=== PATIENT | male | born 1950 | race Caucasian/White ===

== ENCOUNTER 2024-05-15 21:32 | Inpatient (IN) | payer OTHER ==
[~2024-05-15] VITALS: Ht 185.4 cm; Wt 75.8 kg
[2024-05-15] MEDS: IOHEXOL 300 MG/ML 100ML BOTTLE IJ ONE (21:58)
[2024-05-15] MEDS: SODIUM CHLORIDE 0.9% 1,000 ML IV ONE (22:58)
[2024-05-15 23:01] LABS: Hematocrit 30.2 % (41.0-53.0)
[2024-05-15 23:03] LABS: Mean Corpuscular Hemoglobin 30.2 pg (28.0-32.0); Mean Corpuscular Volume 91.4 fL (80.0-100.0); Platelet Count (auto) 234 10^3/uL (140-450); Red Cell Distribution Width 17.8 % (11.8-14.3)
[2024-05-15 23:07] LABS: White Blood Cell 1.8 10^3/uL (4.4-10.8)
[2024-05-15 23:09] LABS: Basophils % (manual) 0 (0.0-2.0); Blast Cells 0; Eosinophils % (manual) 0 (0-7); Metamyelocytes % 0; Myelocytes % 0; Promyelocytes % 0; Reactive Lymphocytes 0
[2024-05-15 23:10] LABS: Alanine Aminotransferase 11 U/L (7-40); Albumin 3.5 g/dL (3.2-4.8); Alkaline Phosphatase 59 U/L (46-116); Anion Gap 13 (5-15); Aspartate Aminotransferase 19 U/L (13-40); BUN/Creatinine Ratio 26.9 (10.0-20.0); Calcium 9.4 mg/dL (8.7-10.4); Chloride 104 mmol/L (98-107); Glucose 104 mg/dL (74-106); Sodium 137 mmol/L (136-145); Total Protein 5.9 g/dL (5.7-8.2)
[2024-05-15 23:12] LABS: Bilirubin, Total 1.6 mg/dL (0.2-1.0); Blood Urea Nitrogen 50 mg/dL (9-23); Carbon Dioxide 20 mmol/L (20-31); Lipase 68 U/L (12-53); Magnesium 1.4 mg/dL (1.6-2.6)
[2024-05-15 23:34] LABS: Anisocytosis Slight; Band Neutrophils % (manual) 6; Lymphocytes % (manual) 24 (10.0-50.0); Monocytes % (manual) 6 (0-12); Ovalocytes FEW; Platelet Estimate Adequate
[2024-05-15 23:54] VITALS: PULSE 105; RESP 12; O2SAT 98
--- NOTE | 2024-05-16 00:17 | ED.PDOC ---
History of Present Illness HPI Comments 73 y/o M is brought in by ambulance for complaint of hypotension and generalized weakness, today. Per EMS report, patient has a history of C diff and sepsis and is a resident of [facility] nursing [facility]. Staff from sit facility was reported to have called EMS after patient began endorsing feeling weak and was found hypotensive. On scene patient was found with a blood pressure of 88/58 and a pulse rate of 100, initially. At time of assessment, patient is a poor historian and reports having abdominal pain, nausea, vomiting, diarrhea, and lightheadedness, with associated poor appetite, for 1 week. He has no reported hematemesis, constipation, hematochezia, fever, chills, other associated symptoms at this time. Chief Complaint: General Weakness Time Seen by MD: 21:39 Reviewed Notes: Nurses Notes, Medications, Allergies Allergies: Coded Allergies: NO KNOWN ALLERGIES (Unverified , 04/30/21) Information Source: Patient, Emergency Med Personnel Mode of Arrival: Ambulatory Severity: Moderate Timing: Hours Duration: Since onset Prehospital treatment: 12 Lead EKG, Accucheck, Baggage Security Checker Review of Systems: REVIEW OF SYSTEMS: No fever, no chills, or fatigue HEENT: No sore throat, no earache, no congestion, no neck pain. Cardiac: Hypotension. No chest pain. No palpitations. Lungs: No shortness of breath, no cough. GI: No nausea, no vomiting, no diarrhea, no constipation, no abdominal pain : No dysuria, frequency, or urgency. No hematuria. Musculoskeletal: No joint pain , no joint swelling, no extremity edema. Skin: No rash, no itching. Neuro: Generalized weakness. No headache, no dizziness Vital Signs Vital Signs Date Time Temp Pulse Resp B/P (MAP) Pulse Ox O2 Delivery O2 Flow Rate FiO2 05/16/24 04:00 104 17 109/55 (73) 99 05/15/24 23:54 Nasal Cannula* 2 28 05/15/24 22:02 97.7 97.7 Physical Exam General: Patient is ill-appearing, awake, dry/raspy voice Skin: Skin in warm, dry and intact. Appropriate color for ethnicity. HEENT: The head is normocephalic and atraumatic. Conjunctivae are clear without exudates or hemorrhage. Sclera is non-icteric. EOM are intact. No signs of nystagmus. Eyelids are normal in appearance without swelling or lesions. Oral mucosa dry Neck: The neck is supple with normal range of motion. No JVD. Cardiac: Heart rate and rhythm are normal. No murmurs, gallops, or rubs are auscultated. Respiratory: No signs of respiratory distress. Lung sounds are clear in all lobes bilaterally without rales, ronchi, or wheezes. Abdominal: Abdomen is soft, non-tender and sunken. Bowel sounds are present and normoactive in all four quadrants. Extremities: Upper and lower extremities are atraumatic in appearance without deformity or edema. Integumentary: Open ulcer wound on dorsal aspect of right foot in her calf of right lower extremity. Poor skin turgor. Neurological: The patient is awake, alert and oriented to person and following commands. He has a mild tremor. Speech is clear. There is no facial asymmetry. Psychiatric: Appropriate mood and affect. Good judgement and insight. No visual or auditory hallucinations. Past Medical History Past Medical History (Other): C.diff, sepsis Surgical History: Denies all surgeries Family History Family History: Unknown Social History Smoker: Non-Smoker Alcohol: Denies ETOH Use Drugs: Denies Drug Use Lives In: Home Was a procedure done? Was a procedure done?: No EKG EKG : Pulse Rate (adult): 100 [place]: Normal Cardiac Rhythm: ST Block: None Hypertrophy: None ST: Normal Differential Dx Considerations may include: C diff, viral syndrome, spoiled food, electrolyte imbalance, encephalopathy X-Ray, Labs, Meds, VS Vital Signs Date Time Temp Pulse Resp B/P (MAP) Pulse Ox O2 Delivery O2 Flow Rate FiO2 05/16/24 04:00 104 17 109/55 (73) 99 05/16/24 02:00 103 21 104/57 (73) 100 05/16/24 01:17 100 05/16/24 00:00 105 11 101/39 (59) 100 05/16/24 00:00 103 05/15/24 23:54 105 12 98 Nasal Cannula* 2 28 05/15/24 22:02 97.7 104 13 91/58 (69) 99 97.7 05/15/24 21:35 100 05/15/24 21:32 97.7 100 18 88/58 (68) 100 Lab Test 05/15/24 22:26 Range/Units White Blood Count 1.8 *L 4.4-10.8 10^3/uL Red Blood Count 3.30 L 4.5-5.90 10^6/uL Hemoglobin 10.0 L 13.5-17.5 g/dL Hematocrit 30.2 L 41.0-53.0 % Mean Corpuscular Volume 91.4 80.0-100.0 fL Mean Corpuscular Hemoglobin 30.2 28.0-32.0 pg Mean Corpuscular Hemoglobin Concent 33.0 32.0-36.0 g/dL Red Cell Distribution Width 17.8 H 11.8-14.3 % Platelet Count 234 140-450 10^3/uL Mean Platelet Volume 7.6 6.9-10.8 fL Neutrophils (%) (Auto) 37.0-80.0 % Lymphocytes (%) (Auto) 10.0-50.0 % Monocytes (%) (Auto) 0.0-12.0 % Basophils (%) (Auto) 0.0-2.0 % Neutrophils # (Auto) 1.6-8.6 10 ^3/uL Lymphocytes # (Auto) 0.4-5.4 10 ^3/uL Monocytes # (Auto) 0-1.3 10 ^3/uL Differential Total Cells Counted 100.0 100 Neutrophils % (Manual) 64 37.0-80.0 Band Neutrophils % (Manual) 6 Lymphocytes % (Manual) 24 10.0-50.0 Monocytes % (Manual) 6 0-12 Eosinophils % (Manual) 0 0-7 Basophils % (Manual) 0 0.0-2.0 Metamyelocytes % (manual) 0 Myelocytes % (Manual) 0 Promyelocytes % (Manual) 0 Blast Cells % (Manual) 0 Reactive Lymphocytes 0 Platelet Estimate Adequate Anisocytosis (manual) Slight Ovalocytes Few Sodium Level 137 136-145 mmol/L Potassium Level 4.0 3.5-5.1 mmol/L Chloride Level 104 98-107 mmol/L Carbon Dioxide Level 20 20-31 mmol/L Anion Gap 13 5-15 Blood Urea Nitrogen 50 H 9-23 mg/dL Creatinine 1.86 H 0.700-1.30 mg/dL Glomerular Filtration Rate Calc 38 >90 mL/min BUN/Creatinine Ratio 26.9 H 10.0-20.0 Serum Glucose 104 74-106 mg/dL Lactic Acid Level 1.0 0.4-2.0 mmol/L Calcium Level 9.4 8.7-10.4 mg/dL Magnesium Level 1.4 L 1.6-2.6 mg/dL Total Bilirubin 1.6 H 0.2-1.0 mg/dL Aspartate Amino Transferase (AST) 19 13-40 U/L Alanine Aminotransferase (ALT) 11 7-40 U/L Alkaline Phosphatase 59 46-116 U/L Total Protein 5.9 5.7-8.2 g/dL Albumin 3.5 3.2-4.8 g/dL Lipase 68 H 12-53 U/L Current Medications Medications (Trade) Dose Ordered Sig/Mia Route Start Time Stop Time Status Last Admin Sodium Chloride 1,000 ml @ 1,000 mls/hr Q1H ONCE IV 05/15/24 22:15 05/15/24 23:14 DC 05/15/24 22:58 [place] [id number] Ph: [phone] DIAGNOSTIC IMAGING Diagnostic Imaging Report : [id number] Signed PATIENT: NIMA ABAD ACCT: [id number] UNIT: [id number] : 1950 LOC: ER ROOM / BED: / AGE / SEX: 73 / M ADM STATUS: REG ER SERVICE 07 ORDERING PHYSICIAN: HUANG ESCALANTE MD PROCEDURE(s): ABPLIV - CT AB PEL WITH IV CON ONLY REASON: Nausea, vomiting, abdominal pain, diarrhea ORDER NUMBER(s): [id number], ACCESSION NUMBER(s): [id number] Exam: CT CT AB PEL WITH IV CON ONLY History: Nausea, vomiting, abdominal pain, diarrhea COMPARISON: None Technique: Multidetector spiral CT of the abdomen and pelvis was performed from lung bases to pubic symphysis. Intravenous contrast was administered during this examination. Portal venous imaging was obtained. Axial, coronal and sagittal multiplanar reformats were performed by the technologist on a separate workstation. Radiation Dose : 1. Abdomen/Pelvis: CTDIvol 14.62mGy, DLP 873.39 mGy*cm. CONTRAST: Type of contrast: Contrast injected: ml Contrast ingested: ml Findings: Lung Bases: No abnormality demonstrated. Liver: Liver is normal in size. No focal lesions. Normal hepatic vascular enhancement. Gallbladder and Biliary Tree: Unremarkable. Spleen: No abnormality demonstrated. Pancreas: No abnormality demonstrated. Adrenal Glands: No abnormality demonstrated. Kidneys: No abnormality demonstrated. No evidence of renal calculus or hydroureteronephrosis. Bladder: Unremarkable Bowel: Stomach appears grossly unremarkable. No abnormally dilated or thick- walled loops of large or small bowel noted. Nonspecific air and fluid is noted in the large and small bowel. Appendix is not visualized; however, no secondary findings of acute appendicitis identified. Ascites: Absent Lymphadenopathy: No evidence of lymphadenopathy. Abdominal Wall and Mesentery: Unremarkable. Vasculature: Mild calcified plaque in abdominal aorta and iliac arteries without aneurysmal dilatation. Stents noted in bilateral iliac veins extending into SVC. Pelvic Organs: Unremarkable. Musculoskeletal: No bony lesions are fracture. IMPRESSION: No acute abdominal or pelvic finding. Radiation optimization: All CT scans at this facility use at least one of these dose optimization techniques: automated exposure control mA and/or kV a djustment per patient size (includes targeted exams where dose is matched to clinical indication) or iterative reconstruction. ATED BY: SEAN WALDRON MD DICTATED DATE/TIME: 05/16/2430 SIGNED BY: SEAN WALDRON MD SIGNED DATE/TIME: 05/16/2430 CC: Time of 1ST Reevaluation: 22:10 Reevaluation 1ST: Unchanged Patient Education/Counseling: Treatment, Need For Follow Up Family Education/Counseling: No Family Present Departure 1 Departure Time of Disposition: 00:15 Impression: Primary Impression: Dehydration Additional Impressions: Clostridium difficile infection Leukopenia Disposition: ADMITTED INPATIENT Condition: Stable Comments 73-year-old male from [facility] with nausea, vomiting, diarrhea for the past week. Chronic C diff infection, on vancomycin. Presented with hypot ension. Patient is significantly dehydrated/ARF. IV FLUIDS ADMINISTERED IN THE EMERGENCY DEPARTMENT. Infectious disease consult ordered for management of C diff and leukopenia. Patient admitted for further treatment, evaluation and monitoring. Critical Care Note Critical Care Time?: No Stability Stability form required: No Heart Score Heart Score: Heart Score Response (Comments) Value History N/A 0 EKG N/A 0 Age N/A 0 Risk Factors N/A 0 Troponin N/A 0 Total 0 I personally scribed for HUANG ESCALANTE MD ([email or web address]) on 05/16/24 at 01:17. Electronically submitted by Octavio Ryder ([email or web address]). I personally scribed for HUANG ESCALANTE MD ([email or web address]) on 05/16/24 at 04:22. Electronically submitted by Octavio Ryder ([email or web address]). HUANG ESCALANTE MD May 16, 2024 00:16
--- NOTE | 2024-05-16 00:33 | DVH ---
Exam: CT CT AB PEL WITH IV CON ONLY History: Nausea, vomiting, abdominal pain, diarrhea COMPARISON: None Technique: Multidetector spiral CT of the abdomen and pelvis was performed from lung bases to pubic s ymphysis. Intravenous contrast was administered during this examination. Portal venous imaging was obtained. Axial, coronal and sagittal multiplanar reformats were performed by the technologist on a separate workstation. Radiation Dose : 1. Abdomen/Pelvis: CTDIvol 14.62mGy, DLP 873.39 mGy*cm. CONTRAST: Type of contrast: Contrast injected: ml Contrast ingested: ml Findings: Lung Bases: No abnormality demonstrated. Liver: Liver is normal in size. No focal lesions. Normal hepatic vascular enhancement. Gallbladder and Biliary Tree: Unremarkable. Spleen: No abnormality demonstrated. Pancreas: No abnormality demonstrated. Adrenal Glands: No abnormality demonstrated. Kidneys: No abnormality demonstrated. No evidence of renal calculus or hydroureteronephrosis. Bladder: Unremarkable Bowel: Stomach appears grossly unremarkable. No abnormally dilated or thick-walled loops of large or small bowel noted. Nonspecific air and fluid is noted in the large and small bowel. Appendix is not v isualized; however, no secondary findings of acute appendicitis identified. Ascites: Absent Lymphadenopathy: No evidence of lymphadenopathy. Abdominal Wall and Mesentery: Unremarkable. Vasculature: Mild calcified plaque in abdominal aorta and iliac arteries without aneurysmal dilatatio n. Stents noted in bilateral iliac veins extending into SVC. Pelvic Organs: Unremarkable. Musculoskeletal: No bony lesions are fracture. IMPRESSION: No acute abdominal or pelvic finding. Radiation optimization: All CT scans at this facility use at least one of these dose optimization sherice hniques: automated exposure control mA and/or kV adjustment per patient size (includes targeted exam s where dose is matched to clinical indication) or iterative reconstruction.
[2024-05-16 08:23] VITALS: PULSE 112; RESP 19; O2SAT 98
[2024-05-16] MEDS ORDERED: ACETAMINOPHEN 325 MG TAB PO PRN (09:00)
[2024-05-16] MEDS ORDERED: DOCUSATE SOD 100 MG CAP PO PRN (09:00)
--- NOTE | 2024-05-16 09:01 | DVHHP2 ---
History of Present Illness Reason for Visit: Generalized weakness History of Present Illness Urbano Ly is a 73-year-old male with past medical history of hypertension, hyperlipidemia, and inclusion body myositis, who comes in due to generalized weakness. Patient has recently been diagnosed with C-diff. He lives at an assist ed living facility and was noted to be lethargic, not eating, or drinking, for about a week, and hypotensive so EMS was called. On assessment patient gets winded and tired when speaking. Cardiovascular: HTN, hyperipidemia Past Surgical History: Other (back, bilateral shoulders, bilateral knees) Smoke: No ALCOHOL: none Drugs: None Lives: Long-Term Review of Systems Constitutional: Yes: Weakness, Malaise; No: Fever, Chills, Sweats, Other Eyes: No: Pain, Vision change, Conjunctivae inflammation, Eyelid inflammation, Other, Redness ENT: No: Ear pain, Ear discharge, Nose pain, Nose discharge, Nose congestion, Mouth pain, Mouth swelling, Throat pain, Throat swelling, Other Respiratory: No: Cough, Dry, Shortness of breath, SOB with excertion, Wheezing, Hemoptysis, Pleuritic Pain, Sputum, Wheezing, Other Cardiovascular: No: Chest Pain, Palpitations, Orthopnea, Paroxysmal Noc. Dyspnea, Edema, Lt Headedness, Other Gastrointestinal: Nausea, Abdominal Pain, Diarrhea; No: Vomiting, Constipation, Melena, Hematochezia, Other Genitourinary: No Dysuria, No Frequency, No Incontinence, No Hematuria, No Retention, No Other Musculoskeletal: No: other, neck pain, shoulder pain, arm pain, back pain, hand pain, leg pain, foot pain Skin: No: Rash, Lesions, Jaundice, Bruising, Other Neurological: No: Weakness, Numbness, Incoordination, Change in speech, Confusion, Seizures, Other Allergies: Coded Allergies: NO KNOWN ALLERGIES (Unverified , 04/30/21) Medications Current Medications Medications Dose Ordered Sig/Mia Route Start Time Stop Time Status Last Admin Dose Admin Sodium Chloride 1,000 ml @ 60 mls/hr [id number] IV 05/16/24 09:00 UNV Acetaminophen/ Hydrocodone Bitart 1 tab Q4HP PRN PO 05/16/24 09:00 UNV Ondansetron HCl 4 mg Q4HP PRN IV 05/16/24 09:00 UNV Docusate Sodium 100 mg BIDPRN PRN PO 05/16/24 09:00 UNV Acetaminophen 650 mg Q6HP PRN PO 05/16/24 09:00 UNV Exam Vital Signs Vital Signs Date Time Temp Pulse Resp B/P (MAP) Pulse Ox O2 Delivery O2 Flow Rate FiO2 05/16/24 08:23 112 19 98 Nasal Cannula* 2 28 05/16/24 08:00 98.2 99/66 (77) 98.2 General Appearance: Alert, Oriented X3, Cooperative, moderate distress HEENT: Atraumatic, PERRLA Respiratory: Clear to auscultation, Normal air movement Cardiovascular: Normal S1, Normal S2, Other (Tachycardia) Abdominal: Other (nausea, and abdominal pain) Extremities: No clubbing, No cyanosis, No edema Skin: No rashes, No breakdown (multiple chronic wounds to lover extremities) Neuro: Normal speech Psych/Mental Status: Mental status NL, Mood NL Labs/Xrays Labs Test 05/15/24 22:26 Range/Units White Blood Count 1.8 *L 4.4-10.8 10^3/uL Red Blood Count 3.30 L 4.5-5.90 10^6/uL Hemoglobin 10.0 L 13.5-17.5 g/dL Hematocrit 30.2 L 41.0-53.0 % Mean Corpuscular Volume 91.4 80.0-100.0 fL Mean Corpuscular Hemoglobin 30.2 28.0-32.0 pg Mean Corpuscular Hemoglobin Concent 33.0 32.0-36.0 g/dL Red Cell Distribution Width 17.8 H 11.8-14.3 % Platelet Count 234 140-450 10^3/uL Mean Platelet Volume 7.6 6.9-10.8 fL Neutrophils (%) (Auto) 37.0-80.0 % Lymphocytes (%) (Auto) 10.0-50.0 % Monocytes (%) (Auto) 0.0-12.0 % Basophils (%) (Auto) 0.0-2.0 % Neutrophils # (Auto) 1.6-8.6 10 ^3/uL Lymphocytes # (Auto) 0.4-5.4 10 ^3/uL Monocytes # (Auto) 0-1.3 10 ^3/uL Differential Total Cells Counted 100.0 100 Neutrophils % (Manual) 64 37.0-80.0 Band Neutrophils % (Manual) 6 Lymphocytes % (Manual) 24 10.0-50.0 Monocytes % (Manual) 6 0-12 Eosinophils % (Manual) 0 0-7 Basophils % (Manual) 0 0.0-2.0 Metamyelocytes % (manual) 0 Myelocytes % (Manual) 0 Promyelocytes % (Manual) 0 Blast Cells % (Manual) 0 Reactive Lymphocytes 0 Platelet Estimate Adequate Anisocytosis (manual) Slight Ovalocytes Few Sodium Level 137 136-145 mmol/L Potassium Level 4.0 3.5-5.1 mmol/L Chloride Level 104 98-107 mmol/L Carbon Dioxide Level 20 20-31 mmol/L Anion Gap 13 5-15 Blood Urea Nitrogen 50 H 9-23 mg/dL Creatinine 1.86 H 0.700-1.30 mg/dL Glomerular Filtration Rate Calc 38 >90 mL/min BUN/Creatinine Ratio 26.9 H 10.0-20.0 Serum Glucose 104 74-106 mg/dL Lactic Acid Level 1.0 0.4-2.0 mmol/L Calcium Level 9.4 8.7-10.4 mg/dL Magnesium Level 1.4 L 1.6-2.6 mg/dL Total Bilirubin 1.6 H 0.2-1.0 mg/dL Aspartate Amino Transferase (AST) 19 13-40 U/L Alanine Aminotransferase (ALT) 11 7-40 U/L Alkaline Phosphatase 59 46-116 U/L Total Protein 5.9 5.7-8.2 g/dL Albumin 3.5 3.2-4.8 g/dL Lipase 68 H 12-53 U/L Exam: CT CT AB PEL WITH IV CON ONLY CONTRAST: Type of contrast: Contrast injected: ml Contrast ingested: ml Findings: Lung Bases: No abnormality demonstrated. Liver: Liver is normal in size. No focal lesions. Normal hepatic vascular enhancement. Gallbladder and Biliary Tree: Unremarkable. Spleen: No abnormality demonstrated. Pancreas: No abnormality demonstrated. Adrenal Glands: No abnormality demonstrated. Kidneys: No abnormality demonstrated. No evidence of renal calculus or hydroureteronephrosis. Bladder: Unremarkable Bowel: Stomach appears grossly unremarkable. No abnormally dilated or thick- walled loops of large or small bowel noted. Nonspecific air and fluid is noted in the large and small bowel. Appendix is not visualized; however, no secondary findings of acute appendicitis identified. Ascites: Absent Lymphadenopathy: No evidence of lymphadenopathy. Abdominal Wall and Mesentery: Unremarkable. Vasculature: Mild calcified plaque in abdominal aorta and iliac arteries without aneurysmal dilatation. Stents noted in bilateral iliac veins extending into SVC. Pelvic Organs: Unremarkable. Musculoskeletal: No bony lesions are fracture. IMPRESSION: No acute abdominal or pelvic finding. Assessment/Plan Assessment/Plan Assessment: Dehydration, Leukopenia, Acute kidney injury, Multiple wounds to bilateral lower extremities, Hypertension, Inclusion body myositis, Plan: Admit to Med-Surg, GI consult, Send stool for C-Diff, IV hydration, PO vancomycin, Wound care consult, Home mediations reconciled, Plan discussed with: Patient My Orders Orders - KEYSHAWN SNELL Procedure Category Date Status Time Admit ADMIT 05/16/24 Transmitted 08:50 Code Status CODE 05/16/24 Transmitted 08:50 Sodium Chloride 0.9% PHA 05/16/24 Logged 09:00 Hydrocodone-Acet PHA 05/16/24 Logged 5/325mg Tab ([place] 09:00 Ondansetron Hcl PHA 05/16/24 Logged (Zofran) 09:00 Docusate Sodium PHA 05/16/24 Logged Capsule (Colace 09:00 Complete Blood Count LAB 05/17/24 Verified 04:00 Comprehensive LAB 05/17/24 Verified Metabolic Panel 04:00 Npo (Nothing By DIET 05/16/24 Transmitted Mouth) Diet Breakfast Condition: Serious ALEX 05/16/24 In Process 08:50 Acetaminophen Tablet PHA 05/16/24 Logged (Tylenol Tablet) 09:00 * Wound Consult CONS 05/16/24 Transmitted C-Diff: Collect Next ALEX 05/16/24 In Process Specimen 08:50 * Swallow Request ST 05/16/24 Transmitted 08:52 Vancomycin Po PHA 05/16/24 Transmitted (Vancomycin 12:00 Date of Service: May 16, 2024 Billing Provider: KEYSHAWN SNELL Common Visit Codes: [id number] INP/OBS CARE (MOD) KEYSHAWN SNELL May 16, 2024 09:01
--- NOTE | 2024-05-16 09:42 | ECG ---
[facility] Test Date: 2024-05-15 Test Time: 21:35:09 Pat Name: NIMA ABAD Department: ED Room: 0236 Gender: M Quality Process Engineer: SANDEEP : 1950 Requested By: HUANG ESCALANTE Order Number: [id number] Reading MD: Rogelio Villarreal Measurements Intervals [place] Rate: 100 P: 79 NJ: 144 QRS: 142 QRSD: 156 T: 17 QT: 408 QTc: 527 Interpretive Statements Sinus tachycardia Multiform ventricular premature complexes RBBB and LPFB Baseline wander in lead(s) II,III,aVF Electronically Signed On 05-20-2024 22:59:16 PDT by Rogelio Villarreal Please click the below link to view image of tracing.
[2024-05-16] MEDS: SODIUM CHLORIDE 0.9% 1,000 ML IV SCH (12:02)
--- NOTE | 2024-05-16 13:28 | DVHINCON2 ---
GI Consult Consult Note GI consult note Date of Consultation: 05/16/2024 Chief Complaint: Possible C diff Referring Physician: Dr. Lara H&P: 73-year-old male presented to ER with complains of generalized weakness and hypotension Patient is seen in ER bed 10. History by patient and family at bedside Patient recently diagnosed with C diff, one-week ago, treated with antibiotics at [facility] facility. Patient admits to frequency of bowel movements imp roving at this time No melena or red blood in stool Patient also hospitalized two months ago with sepsis and COVID Patient has weight loss of 20 lb in the past two weeks due to poor appetite. Patient also complains of nausea and vomiting when he tries to eat food. No abdominal pain SP colonoscopy four years ago gastro group polyps removed Past Medical History: C diff, sepsis Past Surgical History: Social History: NO smoking, drinking ETOH and use of illegal drugs. Family History: Unknown Review of Systems: Constitutional: no fever, chill, weight loss HEENT: no eye pain, no hearing loss, no oral lesion, no scleral icterus Heart: no chest pain, no chest pressure Lung: no cough, no dyspnea with exertion Abdomen: see HPI Physical exam: General: NAD, AAOX3 Chest: lung joseph clear to auscultation Heart: RRR, no murmur Abdomen: non-distended, no tenderness to palpation, +BS Labs: Labs Test 05/15/24 22:26 Range/Units White Blood Count 1.8 *L 4.4-10.8 10^3/uL Red Blood Count 3.30 L 4.5-5.90 10^6/uL Hemoglobin 10.0 L 13.5-17.5 g/dL Hematocrit 30.2 L 41.0-53.0 % Mean Corpuscular Volume 91.4 80.0-100.0 fL Mean Corpuscular Hemoglobin 30.2 28.0-32.0 pg Mean Corpuscular Hemoglobin Concent 33.0 32.0-36.0 g/dL Red Cell Distribution Width 17.8 H 11.8-14.3 % Platelet Count 234 140-450 10^3/uL Mean Platelet Volume 7.6 6.9-10.8 fL Neutrophils (%) (Auto) 37.0-80.0 % Lymphocytes (%) (Auto) 10.0-50.0 % Monocytes (%) (Auto) 0.0-12.0 % Basophils (%) (Auto) 0.0-2.0 % Neutrophils # (Auto) 1.6-8.6 10 ^3/uL Lymphocytes # (Auto) 0.4-5.4 10 ^3/uL Monocytes # (Auto) 0-1.3 10 ^3/uL Differential Total Cells Counted 100.0 100 Neutrophils % (Manual) 64 37.0-80.0 Band Neutrophils % (Manual) 6 Lymphocytes % (Manual) 24 10.0-50.0 Monocytes % (Manual) 6 0-12 Eosinophils % (Manual) 0 0-7 Basophils % (Manual) 0 0.0-2.0 Metamyelocytes % (manual) 0 Myelocytes % (Manual) 0 Promyelocytes % (Manual) 0 Blast Cells % (Manual) 0 Reactive Lymphocytes 0 Platelet Estimate Adequate Anisocytosis (manual) Slight Ovalocytes Few Sodium Level 137 136-145 mmol/L Potassium Level 4.0 3.5-5.1 mmol/L Chloride Level 104 98-107 mmol/L Carbon Dioxide Level 20 20-31 mmol/L Anion Gap 13 5-15 Blood Urea Nitrogen 50 H 9-23 mg/dL Creatinine 1.86 H 0.700-1.30 mg/dL Glomerular Filtration Rate Calc 38 >90 mL/min BUN/Creatinine Ratio 26.9 H 10.0-20.0 Serum Glucose 104 74-106 mg/dL Lactic Acid Level 1.0 0.4-2.0 mmol/L Calcium Level 9.4 8.7-10.4 mg/dL Magnesium Level 1.4 L 1.6-2.6 mg/dL Total Bilirubin 1.6 H 0.2-1.0 mg/dL Aspartate Amino Transferase (AST) 19 13-40 U/L Alanine Aminotransferase (ALT) 11 7-40 U/L Alkaline Phosphatase 59 46-116 U/L Total Protein 5.9 5.7-8.2 g/dL Albumin 3.5 3.2-4.8 g/dL Lipase 68 H 12-53 U/L Imaging: CT abdomen pelvis IMPRESSION: No acute abdominal or pelvic finding. Assessment: History C diff colitis Nausea and vomiting Weight loss Plan: Discussed with Dr. Hai phelan pending Stool for C diff pending Continue vancomycin at this time We will continue to monitor the patient Plan discussed with patient, family at bedside and RN Thank you for this consult Date of Service: May 16, 2024 Billing Provider: CHAVEZ ZACARIAS Common Visit Codes: CONSULT ONLY Consultation Codes: [id number] CONSULT <60MIN CHAVEZ ZACARIAS May 16, 2024 13:27
[2024-05-16] MEDS: VANCOMYCIN HCL 250 MG CAP PO SCH (14:36)
[2024-05-16] MEDS ORDERED: LOSA-534 PO (14:52)
[2024-05-16] MEDS ORDERED: DEXL60CA4 PO (14:52)
[2024-05-16] MEDS ORDERED: MYCO500T3 PO (14:52)
[2024-05-16] MEDS ORDERED: DICL50TA2 PO (14:52)
[2024-05-16] MEDS ORDERED: COLC1CAP PO (14:52)
[2024-05-16] MEDS ORDERED: LOSARTAN POTASSIUM 50 MG TAB PO PRN (15:00)
[2024-05-16] MEDS: ONDANSETRON HCL 4 MG/2 ML VIAL IV PRN (16:05)
[2024-05-16] MEDS: SODIUM CHLORIDE 0.9% 1,000 ML IV ONE (16:55)
[2024-05-16] MEDS: MAGNESIUM SULFATE 1GM/100ML 100 ML IV SCH (17:43)
[2024-05-16 19:30] VITALS: PULSE 107; RESP 18; O2SAT 100
[2024-05-16] MEDS: MYCOPHENOLATE 500 MG TAB PO SCH (22:31)
[2024-05-16] MEDS: COLCHICINE 0.6 MG CAP PO SCH (22:31)
[2024-05-17 07:05] LABS: Alanine Aminotransferase 11 U/L (7-40); Albumin 3.4 g/dL (3.2-4.8); Alkaline Phosphatase 55 U/L (46-116); Anion Gap 16 (5-15); Aspartate Aminotransferase 14 U/L (13-40); BUN/Creatinine Ratio 25.7 (10.0-20.0); Calcium 9.3 mg/dL (8.7-10.4); Chloride 105 mmol/L (98-107); Glucose 77 mg/dL (74-106); Magnesium 2.1 mg/dL (1.6-2.6); Potassium 3.7 mmol/L (3.5-5.1); Sodium 138 mmol/L (136-145); Total Protein 5.8 g/dL (5.7-8.2)
[2024-05-17 07:06] LABS: Bilirubin, Total 1.1 mg/dL (0.2-1.0); Hematocrit 25.8 % (41.0-53.0); Hemoglobin 8.5 g/dL (13.5-17.5); Mean Corpuscular Hemoglobin 30.8 pg (28.0-32.0); Mean Corpuscular Hgb Conc. 33.1 g/dL (32.0-36.0); Platelet Count (auto) 191 10^3/uL (140-450); Red Blood Cells 2.77 10^6/uL (4.5-5.90)
[2024-05-17 07:12] LABS: Blood Urea Nitrogen 61 mg/dL (9-23); Carbon Dioxide 17 mmol/L (20-31)
[2024-05-17 07:48] VITALS: PULSE 99; O2SAT 100
[2024-05-17 07:53] LABS: White Blood Cell 1.3 10^3/uL (4.4-10.8)
[2024-05-17 07:57] LABS: Basophils % (manual) 0 (0.0-2.0); Blast Cells 0; Metamyelocytes % 0; Myelocytes % 0; Promyelocytes % 0; Reactive Lymphocytes 0
[2024-05-17] MEDS: cefTRIAXone 1GM/50ML D5W 50 ML IV SCH (08:01)
[2024-05-17] MEDS: SODIUM CHLORIDE 0.9% 1,000 ML IV ONE (08:01)
--- NOTE | 2024-05-17 08:20 | DVH ---
EXAM: XY CHEST XRAY 1 VIEW Indication: Pain Technique: Single frontal view of the chest was obtained Comparison: None FINDINGS: Lines and Tubes: None Lungs: No focal consolidation. Pleura: No effusion. No pneumothorax. Cardiomediastinal contours: Unremarkable Bones: No acute osseous abnormality. IMPRESSION: No acute cardiopulmonary disease.
[2024-05-17] MEDS: metroNIDAZOLE 500MG/100ML 100 ML IV SCH (08:28)
[2024-05-17 09:09] LABS: Band Neutrophils % (manual) 4; Eosinophils % (manual) 3 (0-7); Lymphocytes % (manual) 81 (10.0-50.0); Monocytes % (manual) 3 (0-12); Platelet Estimate Adequate
[2024-05-17 09:55] LABS: Urine Bacteria None Seen /hpf (None Seen)
--- NOTE | 2024-05-17 09:55 | DVHPNRES ---
Progress Note Date Seen: May 17, 2024 Resident Creating Document: ANALY ESTRADA RESIDENT Has the PT tested + for MRSA If YES, has PT been informed?: No Medical Necessity Reason Pt with a Central, PICC or Fol: No Subjective Review of Systems 73-year-old male with a past medical history of hypertension, hyperlipidemia, inclusion body myositis, and a recent diagnosis of Clostridioides difficile infection, presenting with generalized weakness. He resides in a senior living and has been noted to be lethargic, not eating well, and experiencing fatigue with minimal exertion. Patient also stated few episodes of diarrhea He was on mycophenolate (for myositis) and colchicine, both of which have now been discontinued due to neutropenia. His clinical course has been complicated by worsening weakness, an elevated CRP, and the initiation of broad-spectrum antibiotics (ceftriaxone, metronidazole, vancomycin) due to concern for possible infection. Objective vital signs Vital Sign Date Time Temp Pulse Resp B/P (MAP) Pulse Ox O2 Delivery O2 Flow Rate FiO2 05/17/24 07:48 99 100 Nasal Cannula* 2 28 05/17/24 07:48 97.4 20 130/70 (90) 97.4 Total Intake and Output 05/16/24 05/16/24 05/17/24 15:00 23:00 07:00 Intake Total 100 ml 300 ml Balance 100 ml 300 ml medications Current Medications Medications Dose Ordered Sig/Mia Route Start Time Stop Time Status Last Admin Dose Admin Sodium Chloride 1,000 ml @ 60 mls/hr [id number] IV 05/16/24 09:00 05/17/24 01:49 60 MLS/HR Acetaminophen/ Hydrocodone Bitart 1 tab Q4HP PRN PO 05/16/24 09:00 Ondansetron HCl 4 mg Q4HP PRN IV 05/16/24 09:00 05/16/24 16:05 4 MG Acetaminophen 650 mg Q6HP PRN PO 05/16/24 09:00 Vancomycin HCl 250 mg QID PO 05/16/24 12:00 05/17/24 05:36 250 MG Losartan Potassium 50 mg BIDP PRN PO 05/16/24 15:00 Pantoprazole Sodium 40 mg DAILY PO 05/17/24 10:00 Patient Own Medication 1 tab BID PRN PO 05/16/24 16:45 Hold Metronidazole 100 ml @ 100 mls/hr Q8HR IV 05/17/24 07:30 05/17/24 08:28 100 MLS/HR Examination Physical Exam: General: Alert, oriented x3, moderate distress Respiratory: No increased work of breathing Cardiovascular: No murmurs, regular rhythm GI: Non-distended, no tenderness Neurologic: No focal deficits Skin multiple skin excoriations laboratory and microbiology Laboratory Tests 05/17/24 06:36 Test 05/17/24 06:36 Range/Units Serum Glucose 77 74-106 mg/dL Problem List/Assessment/Plan Problem List/Assessment/Plan #Possible drug induced neutropenia #Possible drug induced anemia #Sepsis #C difficile infection recently #VALERIANO possible VMN #Inclusion bodies myositis #Hypertension Wean off O2: sat 100% Diet: mechanical soft IV fluids: 1 lt given today keep 60 cc/h Vancomycin oral Ceftriaxone + metronidazole IV STOP mycophenolate and colchicine due to neutropenia Protonix IV Pending: CK, ESR, haptoglobin, reticulocytes, stools studies, urine studies, peripheral smear, blood culture, Clostridium difficile toxin GI on board Case discussed with Dr Kincaid Plan discussed with: Patient, Other (rn) My Orders My Orders Orders - ANALY ESTRADA Procedure Category Date Status Time Stool Bacterial TERRI 05/17/24 Uncollected Culture 06:42 Stool Wbc LAB 05/17/24 Logged 06:42 Stool Occult Blood LAB 05/17/24 Logged 06:42 Carrillo Stain Slide LAB 05/17/24 In Process 06:43 Erythrocyte LAB 05/17/24 Logged Sedimentation Rate 06:58 Blood Culture TERRI 05/17/24 In Process 07:01 Chest Xray 1 View XY 05/17/24 Resulted 07:26 Urinalysis LAB 05/17/24 Logged 07:28 Urine Bacterial TERRI 05/17/24 Uncollected Culture 07:28 Metronidazole PHA 05/17/24 In Process 500mg/100ml (Flagyl 07:30 Urine Sodium LAB 05/17/24 Logged 07:55 Urine Creatinine LAB 05/17/24 Logged 07:55 Urine Protein LAB 05/17/24 Logged 07:55 Precautions: ALEX 05/17/24 In Process Neutropenic 09:04 Creatine Kinase LAB 05/17/24 In Process 09:17 Date of Service: May 17, 2024 Billing Provider: MICHEL KINCAID MD Common Visit Codes: [id number] INP/OBS CARE(HIGH) ANALY ESTRADA RESIDENT May 17, 2024 09:55 MICHEL KINCAID MD May 17, 2024 22:30
[2024-05-17 10:08] LABS: Urine Blood Negative /uL (Negative); Urine Clarity Clear (Clear); Urine Color Light-Yellow (Yellow); Urine Protein, UAD Negative (Negative); Urine Specific Gravity 1.017 (1.001-1.035); Urine Squamous Epithelial Cell FEW /hpf (<5); Urine Urobilinogen Normal (Negative); Urine WBC < 1 /HPF (0-3); Urine pH 5.5 (5.0-9.0)
[2024-05-17] MEDS: PANTOPRAZOLE 40 MG TAB PO SCH (10:27)
[2024-05-17 10:32] LABS: Protein, Urine 17.8 mg/dL (1-14)
[2024-05-17 10:34] LABS: Creatinine, Urine 32.08 mg/dL (30.0-125.0)
[2024-05-17] MEDS ORDERED: DOXYCYCLINE 100MG/100ML 100 ML IV SCH (13:15)
[2024-05-17] MEDS ORDERED: LOPERAMIDE HCL 2 MG CAP/TAB PO PRN (15:15)
--- NOTE | 2024-05-17 16:24 | DVHPN2 ---
Progress Note Date Seen: May 17, 2024 Resident Creating Document: BEATA PALOMINO RESIDENT Has the PT tested + for MRSA If YES, has PT been informed?: No Medical Necessity Reason Pt with a Central, PICC or Fol: No Subjective Review of Systems 73-year-old male presented to ER with complains of generalized weakness and hypotension Patient is seen in ER bed 10. History by patient and family at bedside Patient recently diagnosed with C diff, one-week ago, treated with antibiotics at [facility] facility. Patient admits to frequency of bowel movements improving at this time No melena or red blood in stool Patient also hospitalized two months ago with sepsis and COVID Patient has weight loss of 20 lb in the past two weeks due to poor appetite. Patient also complains of nausea and vomiting when he tries to eat food. No abdominal pain SP colonoscopy four years ago gastro group polyps removed Objective vital signs Vital Sign Date Time Temp Pulse Resp B/P (MAP) Pulse Ox O2 Delivery O2 Flow Rate FiO2 05/17/24 14:00 99 16 133/69 (90) 100 05/17/24 07:48 Nasal Cannula* 2 28 05/17/24 07:48 97.4 97.4 Total Intake and Output 05/16/24 05/16/24 05/17/24 15:00 23:00 07:00 Intake Total 100 ml 300 ml Balance 100 ml 300 ml medications Current Medications Medications Dose Ordered Sig/Mia Route Start Time Stop Time Status Last Admin Dose Admin Sodium Chloride 1,000 ml @ 60 mls/hr [id number] IV 05/16/24 09:00 05/17/24 01:49 60 MLS/HR Acetaminophen/ Hydrocodone Bitart 1 tab Q4HP PRN PO 05/16/24 09:00 Ondansetron HCl 4 mg Q4HP PRN IV 05/16/24 09:00 05/16/24 16:05 4 MG Acetaminophen 650 mg Q6HP PRN PO 05/16/24 09:00 Losartan Potassium 50 mg BIDP PRN PO 05/16/24 15:00 Pantoprazole Sodium 40 mg DAILY PO 05/17/24 10:00 05/17/24 10:27 40 MG Patient Own Medication 1 tab BID PRN PO 05/16/24 16:45 Hold Metronidazole 100 ml @ 100 mls/hr Q8HR IV 05/17/24 07:30 05/17/24 13:43 100 MLS/HR Cefepime HCl 50 ml @ 12.5 mls/hr Q12HR IV 05/17/24 22:00 Saccharomyces Boulardii 250 mg DAILY PO 05/18/24 10:00 UNV Cholestyramine Resin 4 gm DAILY@11 GT 05/18/24 11:00 UNV Loperamide HCl 2 mg PRN PRN PO 05/17/24 15:15 UNV Doxycycline Hyclate 100 ml @ 50 mls/hr Q12H IV 05/17/24 16:00 Examination General: Alert, oriented x3, moderate distress Respiratory: No increased work of breathing Cardiovascular: No murmurs, regular rhythm GI: Non-distended, no tenderness Neurologic: No focal deficits Skin multiple skin excoriations laboratory and microbiology Laboratory Tests 05/17/24 06:36 Test 05/17/24 06:36 Range/Units Serum Glucose 77 74-106 mg/dL Microbiology Date/Time Source Procedure Growth Status 05/16/24 17:52 Stool Clostridium difficile Toxin Assay - Final Complete Problem List/Assessment/Plan Problem List/Assessment/Plan History C diff colitis Nausea and vomiting Weight loss Pancytopenia due to mycophenolate Stool for C diff - negative Continue broad-spectrum antibiotics Discontinued mycophenolate Start cholestyramine 4 g daily Florastor 250 mg p.o. daily Loperamide 2 mg p.o. p.r.n. after each bowel movement. Thank you so much for the opportunity to consult on your patient. GI team will follow the patient. In case of any questions or concerns please feel free to reach out. Case discussed with Dr. Brednan Valles. The patient and caregiver team agreed to the plan. Plan discussed with: Patient, BEATA Gracia RESIDENT May 17, 2024 16:24
[2024-05-17] MEDS: DOXYCYCLINE 100MG/100ML 100 ML IV SCH (16:35)
[2024-05-17 17:14] LABS: Erythrocyte Sedimentation Rate 67 mm/hr (0-20)
[2024-05-17] MEDS: CEFEPIME 1GM/ 50ML 50 ML IV ONE (18:36)
[2024-05-17 20:38] VITALS: PULSE 102; RESP 14; O2SAT 100
[2024-05-17] MEDS ORDERED: CEFEPIME 1GM/ 50ML 50 ML IV SCH (22:00)
[2024-05-17 23:10] VITALS: PULSE 97; RESP 18; O2SAT 99
[2024-05-17 23:23] VITALS: BP 130/71; PULSE 97; RESP 18; TEMP 99.1
[2024-05-18] VITALS (8 sets, daily range): BP systolic 125–142; BP diastolic 64–78; PULSE 57–98; RESP 15–20; TEMP 97.3–99.1; O2SAT 92–100
[2024-05-18] MEDS: CEFEPIME 1GM/ 50ML 50 ML IV SCH (05:30)
[2024-05-18 06:03] LABS: Alkaline Phosphatase 60 U/L (46-116); Anion Gap 12 (5-15); Aspartate Aminotransferase 14 U/L (13-40); BUN/Creatinine Ratio 26.9 (10.0-20.0); Calcium 8.9 mg/dL (8.7-10.4); Glucose 87 mg/dL (74-106); Sodium 138 mmol/L (136-145)
[2024-05-18 06:04] LABS: Bilirubin, Total 0.7 mg/dL (0.2-1.0)
[2024-05-18 06:05] LABS: Basophils # (auto) 0 10 ^3/uL (0-0.2); Eosinophils # (auto) 0.1 10 ^3/uL (0-0.8); Hemoglobin 8.4 g/dL (13.5-17.5); Monocytes # (auto) 0.1 10 ^3/uL (0-1.3); Neutrophils # (auto) 0.2 10 ^3/uL (1.6-8.6); Red Cell Distribution Width 17.6 % (11.8-14.3)
[2024-05-18 06:10] LABS: Basophils % (auto) 0.4 % (0.0-2.0); Eosinophils % (auto) 8.3 % (0.0-7.0); Hematocrit 25.6 % (41.0-53.0); Lymphocytes # (auto) 0.8 10 ^3/uL (0.4-5.4); Mean Corpuscular Hemoglobin 30.7 pg (28.0-32.0); Mean Corpuscular Hgb Conc. 32.8 g/dL (32.0-36.0); Mean Corpuscular Volume 93.5 fL (80.0-100.0); Neutrophils % (auto) 13.3 % (37.0-80.0); Nucleated Red Blood Cells % 0.5 %; Platelet Count (auto) 162 10^3/uL (140-450); Red Blood Cells 2.73 10^6/uL (4.5-5.90)
[2024-05-18 06:21] LABS: Alanine Aminotransferase < 9 U/L (7-40); Blood Urea Nitrogen 56 mg/dL (9-23); Carbon Dioxide 17 mmol/L (20-31); Chloride 109 mmol/L (98-107); Potassium 3.1 mmol/L (3.5-5.1); Total Protein 5.2 g/dL (5.7-8.2)
[2024-05-18] MEDS: POTASSIUM CHL 20 Meq TABLET PO ONE (06:40)
[2024-05-18 06:56] LABS: White Blood Cell 1.1 10^3/uL (4.4-10.8)
--- NOTE | 2024-05-18 09:16 | DVHPNRES ---
Progress Note Date Seen: May 18, 2024 Resident Creating Document: ANALY ESTRADA RESIDENT Has the PT tested + for MRSA If YES, has PT been informed?: No Medical Necessity Reason Pt with a Central, PICC or Fol: No Subjective Review of Systems 73-year-old male with a past medical history of hypertension, hyperlipidemia, inclusion body myositis, and a recent diagnosis of Clostridioides difficile infection, presenting with generalized weakness. He resides in a senior care and has been noted to be lethargic, not eating well, and experiencing fatigue with minimal exertion. Patient also stated few episodes of diarrhea He was on mycophenolate (for myositis) and colchicine, both of which have now been discontinued due to neutropenia. His clinical course has been complicated by worsening weakness, an elevated CRP, and the initiation of broad-spectrum antibiotics (ceftriaxone, metronidazole, vancomycin) due to concern for possible infection. Objective vital signs Vital Sign Date Time Temp Pulse Resp B/P (MAP) Pulse Ox O2 Delivery O2 Flow Rate FiO2 05/18/24 05:00 98.1 57 20 125/67 (86) 100 98.1 05/17/24 23:10 Nasal Cannula* 2 28 Total Intake and Output 05/17/24 05/17/24 05/18/24 15:00 23:00 07:00 Intake Total 730 ml 390 ml 300 ml Balance 730 ml 390 ml 300 ml medications Current Medications Medications Dose Ordered Sig/Mia Route Start Time Stop Time Status Last Admin Dose Admin Sodium Chloride 1,000 ml @ 60 mls/hr [id number] IV 05/16/24 09:00 05/17/24 18:36 60 MLS/HR Acetaminophen/ Hydrocodone Bitart 1 tab Q4HP PRN PO 05/16/24 09:00 Ondansetron HCl 4 mg Q4HP PRN IV 05/16/24 09:00 05/16/24 16:05 4 MG Acetaminophen 650 mg Q6HP PRN PO 05/16/24 09:00 Losartan Potassium 50 mg BIDP PRN PO 05/16/24 15:00 Pantoprazole Sodium 40 mg DAILY PO 05/17/24 10:00 05/17/24 10:27 40 MG Patient Own Medication 1 tab BID PRN PO 05/16/24 16:45 Hold Metronidazole 100 ml @ 100 mls/hr Q8HR IV 05/17/24 07:30 05/18/24 05:25 100 MLS/HR Saccharomyces Boulardii 250 mg DAILY PO 05/18/24 10:00 Cholestyramine Resin 4 gm DAILY@11 GT 05/18/24 11:00 Loperamide HCl 2 mg PRN PRN PO 05/17/24 15:15 Doxycycline Hyclate 100 ml @ 50 mls/hr Q12H IV 05/17/24 16:00 05/18/24 03:14 50 MLS/HR Cefepime HCl 50 ml @ 12.5 mls/hr Q12H IV 05/18/24 06:00 05/18/24 05:30 12.5 MLS/HR Tbo-Filgrastim 300 mcg DAILY SC 05/18/24 10:00 Examination Physical Exam: General: Alert, oriented x3, moderate distress Respiratory: No increased work of breathing Cardiovascular: No murmurs, regular rhythm GI: Non-distended, no tenderness Neurologic: No focal deficits Skin multiple skin excoriations laboratory and microbiology Laboratory Tests 05/18/24 05:19 Test 05/18/24 05:19 Range/Units Serum Glucose 87 74-106 mg/dL Microbiology Date/Time Source Procedure Growth Status 05/17/24 08:05 Blood Blood Culture - Preliminary NO GROWTH AFTER 24 HOURS OF INCUBATION. Resulted 05/16/24 17:52 Stool Clostridium difficile Toxin Assay - Final Complete Problem List/Assessment/Plan Problem List/Assessment/Plan #Possible drug induced neutropenia #Possible drug induced anemia #Sepsis #C difficile infection recently #VALERIANO possible ATN improving #Inclusion bodies myositis #Hypertension Diet: mechanical soft IV fluids: 1 lt given today keep 60 cc/h doxycycline + cefepime + metronidazole IV Neupogen STOP mycophenolate and colchicine due to neutropenia Protonix IV CK normal , ESR high , haptoglobin normal , reticulocytes low, stools studies pending , urine studies: Fena elevated possible ATN , peripheral smear, blood culture prelim neg , Clostridium difficile toxin neg wound culture: Moderate growth: Gram Positive Rods resembling Diphtheroids GI on board Case discussed with Dr Kincaid Plan discussed with: Patient, Other (rn) My Orders My Orders Orders - ANALY ESTRADA Procedure Category Date Status Time Doxycycline PHA 05/17/24 In Process 100mg/100ml 16:00 Apply Barrier Cream ALEX 05/17/24 In Process 15:30 * Dietary Consult CONS 05/17/24 Transmitted 15:54 Wound Culture W/ Gs TERRI 05/17/24 In Process 16:04 Wound Culture W/ Gs TERRI 05/17/24 In Process 16:04 Complete Blood Count LAB 05/18/24 In Process 04:00 Cefepime 1gm/ 50ml PHA 05/18/24 In Process (Maxipime 1gm/50ml) 06:00 Mrsa Screen TERRI 05/18/24 In Process 05:31 Rbc Morphology LAB 05/18/24 In Process 05:19 Filgrastim-Tbo PHA 05/18/24 In Process (Granix) 10:00 Date of Service: May 18, 2024 Billing Provider: MICHEL KINCAID MD Common Visit Codes: [id number] INP/OBS CARE(HIGH) ANALY ESTRADA RESIDENT May 18, 2024 09:16 MICHEL KINCAID MD May 18, 2024 20:48
[2024-05-18] MEDS: FLORASTOR (S. BOULARDII) 250 MG CAP PO SCH (09:43)
[2024-05-18] MEDS: POTASSIUM EFFERVESENT TAB 25 MEQ PO ONE (09:44)
[2024-05-18 09:54] LABS: Platelet Estimate Adequate
[2024-05-18] MEDS: CHOLESTYRAMINE 4 GM POWDER GT SCH (11:52)
[2024-05-18] MEDS: FILGRASTIM (TBO) 300 MCG/0.5 ML SYRG SC SCH (11:56)
--- NOTE | 2024-05-18 13:11 | DVHPN2 ---
Progress Note Date Seen: May 18, 2024 Resident Creating Document: BEATA PALOMINO RESIDENT Has the PT tested + for MRSA If YES, has PT been informed?: No Medical Necessity Reason Pt with a Central, PICC or Fol: No Subjective Review of Systems 73-year-old male presented to ER with complains of generalized weakness and hypotension Patient is seen in ER bed 10. History by patient and family at bedside Patient recently diagnosed with C diff, one-week ago, treated with antibiotics at [facility]. Patient admits to frequency of bowel movements improving at this time No melena or red blood in stool Patient also hospitalized two months ago with sepsis and COVID Patient has weight loss of 20 lb in the past two weeks due to poor appetite. Patient also complains of nausea and vomiting when he tries to eat food. No abdominal pain SP colonoscopy four years ago [facility] polyps removed. Objective vital signs Vital Sign Date Time Temp Pulse Resp B/P (MAP) Pulse Ox O2 Delivery O2 Flow Rate FiO2 05/18/24 12:39 97.5 78 16 131/78 (95) 92 97.5 05/17/24 23:10 Nasal Cannula* 2 28 Total Intake and Output 05/17/24 05/17/24 05/18/24 15:00 23:00 07:00 Intake Total 730 ml 390 ml 300 ml Balance 730 ml 390 ml 300 ml medications Current Medications Medications Dose Ordered Sig/Mia Route Start Time Stop Time Status Last Admin Dose Admin Sodium Chloride 1,000 ml @ 60 mls/hr [id number] IV 05/16/24 09:00 05/18/24 12:03 60 MLS/HR Acetaminophen/ Hydrocodone Bitart 1 tab Q4HP PRN PO 05/16/24 09:00 Ondansetron HCl 4 mg Q4HP PRN IV 05/16/24 09:00 05/16/24 16:05 4 MG Acetaminophen 650 mg Q6HP PRN PO 05/16/24 09:00 Losartan Potassium 50 mg BIDP PRN PO 05/16/24 15:00 Pantoprazole Sodium 40 mg DAILY PO 05/17/24 10:00 05/18/24 09:43 40 MG Patient Own Medication 1 tab BID PRN PO 05/16/24 16:45 Hold Metronidazole 100 ml @ 100 mls/hr Q8HR IV 05/17/24 07:30 05/18/24 05:25 100 MLS/HR Saccharomyces Boulardii 250 mg DAILY PO 05/18/24 10:00 05/18/24 09:43 250 MG Cholestyramine Resin 4 gm DAILY@11 GT 05/18/24 11:00 05/18/24 11:52 4 GM Loperamide HCl 2 mg PRN PRN PO 05/17/24 15:15 Doxycycline Hyclate 100 ml @ 50 mls/hr Q12H IV 05/17/24 16:00 05/18/24 03:14 50 MLS/HR Cefepime HCl 50 ml @ 12.5 mls/hr Q12H IV 05/18/24 06:00 05/18/24 05:30 12.5 MLS/HR Tbo-Filgrastim 300 mcg DAILY SC 05/18/24 10:00 05/18/24 11:56 300 MCG Examination General: Alert, oriented x3, moderate distress Respiratory: No increased work of breathing Cardiovascular: No murmurs, regular rhythm GI: Non-distended, no tenderness Neuro: No focal deficits Skin multiple skin excoriations laboratory and microbiology Laboratory Tests 05/18/24 05:19 Test 05/18/24 05:19 Range/Units Serum Glucose 87 74-106 mg/dL Microbiology Date/Time Source Procedure Growth Status 05/17/24 16:00 Knee Right Gram Stain - Final Resulted 05/17/24 16:00 Knee Right Wound Culture - Preliminary Resulted 05/17/24 08:05 Blood Blood Culture - Preliminary NO GROWTH AFTER 24 HOURS OF INCUBATION. Resulted 05/16/24 17:52 Stool Clostridium difficile Toxin Assay - Final Complete Problem List/Assessment/Plan Problem List/Assessment/Plan # History C diff colitis # Nausea and vomiting # Weight loss # Pancytopenia due to mycophenolate # diarrhea Plan: - Stool for C diff - negative - Continue broad-spectrum antibiotics - Discontinued mycophenolate - Start cholestyramine 4 g daily - Florastor 250 mg p.o. daily - Loperamide 2 mg p.o. p.r.n. after each bowel movement. -colonoscopy four years ago [facility] polyps removed - advised patient to repeat colonoscopy as outpatient Thank you so much for the opportunity to consult on your patient. GI team will follow the patient. In case of any questions or concerns please feel free to reach out. Case discussed with Dr. Brendan Valles. The patient and caregiver team agreed to the plan. Plan discussed with: Patient Dietary Evaluation Review Recommendations by RD: Increase Calorie Intake, Protein Supplementation Comments: 1) Cardiac Msoft diet 2) Ensure Enlive 8fl oz BID 3) VitC 500mg BID, zinc sulfate 220mg 1 tab daily x 10 days, MVI 1 tab daily 4) Continue current plan of care Expected Outcomes/Goals: Pt will meet >75% estimated needs Fu 5-7 days Food and Nutrition Intake (Sev: <50% est energy req 5days Interpretation of weight loss: >5% in 1 month Protein Calorie Malnutrition: Severe Is there a minimum of two crit: Yes BEATA PALOMINO RESIDENT May 18, 2024 13:11
[2024-05-19] VITALS (7 sets, daily range): BP systolic 107–133; BP diastolic 71–78; PULSE 78–107; RESP 18–20; TEMP 97.3–97.8; O2SAT 99–100
[2024-05-19] MEDS: HYDROcodone-ACET 5/325MG TAB PO PRN (00:46)
[2024-05-19 05:34] LABS: Basophils # (auto) 0 10 ^3/uL (0-0.2); Basophils % (auto) 0.4 % (0.0-2.0); Eosinophils # (auto) 0.1 10 ^3/uL (0-0.8); Hemoglobin 8.1 g/dL (13.5-17.5); Lymphocytes # (auto) 0.7 10 ^3/uL (0.4-5.4); Monocytes # (auto) 0.1 10 ^3/uL (0-1.3); Neutrophils # (auto) 0.1 10 ^3/uL (1.6-8.6)
[2024-05-19 05:37] LABS: Eosinophils % (auto) 6.5 % (0.0-7.0); Hematocrit 23.9 % (41.0-53.0); Mean Corpuscular Hemoglobin 30.8 pg (28.0-32.0); Mean Corpuscular Volume 90.6 fL (80.0-100.0); Nucleated Red Blood Cells % 0.1 %; Platelet Count (auto) 114 10^3/uL (140-450); Red Blood Cells 2.64 10^6/uL (4.5-5.90); Red Cell Distribution Width 16.9 % (11.8-14.3)
[2024-05-19 05:40] LABS: Lymphocytes % (auto) 76.1 % (10.0-50.0)
[2024-05-19 05:44] LABS: White Blood Cell 0.9 10^3/uL (4.4-10.8)
[2024-05-19 06:02] LABS: Alkaline Phosphatase 55 U/L (46-116); Anion Gap 12 (5-15); BUN/Creatinine Ratio 29.1 (10.0-20.0); Glucose 84 mg/dL (74-106); Sodium 137 mmol/L (136-145)
[2024-05-19 06:03] LABS: Bilirubin, Total 0.7 mg/dL (0.2-1.0)
[2024-05-19 06:07] LABS: Alanine Aminotransferase < 9 U/L (7-40); Albumin 2.8 g/dL (3.2-4.8); Aspartate Aminotransferase 12 U/L (13-40); Blood Urea Nitrogen 46 mg/dL (9-23); Calcium 8.5 mg/dL (8.7-10.4); Carbon Dioxide 16 mmol/L (20-31); Chloride 109 mmol/L (98-107); Potassium 2.9 mmol/L (3.5-5.1); Total Protein 4.8 g/dL (5.7-8.2)
--- NOTE | 2024-05-19 09:22 | DVHPNRES ---
Progress Note Date Seen: May 19, 2024 Resident Creating Document: ANALY ESTRADA RESIDENT Has the PT tested + for MRSA If YES, has PT been informed?: No Medical Necessity Reason Pt with a Central, PICC or Fol: No Subjective Review of Systems 73-year-old male with a past medical history of hypertension, hyperlipidemia, inclusion body myositis, and a recent diagnosis of Clostridioides difficile infection, presenting with generalized weakness. He resides in a [place] [facility] and has been noted to be lethargic, not eating well, and experiencing fatigue with minimal exertion. Patient also stated few episodes of diarrhea He was on mycophenolate (for myositis) and colchicine, both of which have now been discontinued due to neutropenia. His clinical course has been complicated by worsening weakness, an elevated CRP, and the initiation of broad-spectrum antibiotics (ceftriaxone, metronidazole, vancomycin) due to concern for possible infection. Objective vital signs Vital Sign Date Time Temp Pulse Resp B/P (MAP) Pulse Ox O2 Delivery O2 Flow Rate FiO2 05/19/24 08:00 20 Nasal Cannula* 2 28 05/19/24 04:58 97.3 100 129/77 (94) 99 97.3 Total Intake and Output 05/18/24 05/18/24 05/19/24 15:00 23:00 07:00 Intake Total 1230 ml 1050 ml Output Total 600 ml 300 ml Balance 630 ml 750 ml medications Current Medications Medications Dose Ordered Sig/Mia Route Start Time Stop Time Status Last Admin Dose Admin Sodium Chloride 1,000 ml @ 60 mls/hr [id number] IV 05/16/24 09:00 05/18/24 12:03 60 MLS/HR Acetaminophen/ Hydrocodone Bitart 1 tab Q4HP PRN PO 05/16/24 09:00 05/19/24 00:46 1 TAB Ondansetron HCl 4 mg Q4HP PRN IV 05/16/24 09:00 05/16/24 16:05 4 MG Acetaminophen 650 mg Q6HP PRN PO 05/16/24 09:00 Losartan Potassium 50 mg BIDP PRN PO 05/16/24 15:00 Pantoprazole Sodium 40 mg DAILY PO 05/17/24 10:00 05/18/24 09:43 40 MG Patient Own Medication 1 tab BID PRN PO 05/16/24 16:45 Hold Metronidazole 100 ml @ 100 mls/hr Q8HR IV 05/17/24 07:30 05/19/24 05:12 100 MLS/HR Saccharomyces Boulardii 250 mg DAILY PO 05/18/24 10:00 05/18/24 09:43 250 MG Cholestyramine Resin 4 gm DAILY@11 GT 05/18/24 11:00 05/18/24 11:52 4 GM Loperamide HCl 2 mg PRN PRN PO 05/17/24 15:15 Doxycycline Hyclate 100 ml @ 50 mls/hr Q12H IV 05/17/24 16:00 05/19/24 03:01 50 MLS/HR Cefepime HCl 50 ml @ 12.5 mls/hr Q12H IV 05/18/24 06:00 05/19/24 05:14 12.5 MLS/HR Tbo-Filgrastim 300 mcg DAILY SC 05/18/24 10:00 05/18/24 11:56 300 MCG Potassium Chloride 150 ml @ 25 mls/hr Q2H IV 05/19/24 06:45 05/19/24 12:44 Tbo-Filgrastim 300 mcg DAILY SC 05/19/24 10:00 05/22/24 09:59 UNV Examination General: Alert, oriented x3, moderate distress Respiratory: No increased work of breathing Cardiovascular: No murmurs, regular rhythm GI: Non-distended, no tenderness Neurologic: No focal deficits Skin multiple skin excoriations laboratory and microbiology Laboratory Tests 05/19/24 05:13 Test 05/19/24 05:13 Range/Units Serum Glucose 84 74-106 mg/dL Microbiology Date/Time Source Procedure Growth Status 05/18/24 05:50 Voided Urine Urine Culture - Preliminary Resulted 05/18/24 05:39 Nose MRSA Screen - Final Complete 05/17/24 08:05 Blood Blood Culture - Preliminary NO GROWTH AFTER 48 HOURS OF INCUBATION. Resulted 05/16/24 17:52 Stool Clostridium difficile Toxin Assay - Final Complete Problem List/Assessment/Plan Problem List/Assessment/Plan #Possible drug induced neutropenia #Possible drug induced anemia #Sepsis #C difficile infection recently #VALERIANO possible ATN improving #Inclusion bodies myositis #Hypertension #Hypokalemia #Thrombocytopenia Diet: mechanical soft IV fluids: 1 lt given today keep 60 cc/h doxycycline + cefepime + metronidazole IV Neupogen WBC are trending down STOP mycophenolate and colchicine due to neutropenia Protonix IV CK normal , ESR high , haptoglobin normal , reticulocytes low, stools studies pending , urine studies: Fena elevated possible ATN , peripheral smear, blood culture prelim neg , Clostridium difficile toxin neg wound culture: Moderate growth: Gram Positive Rods resembling Diphtheroids GI on board Hematology consult K IV+ Case discussed with Dr Kincaid Plan discussed with: Patient, Other (rn) My Orders My Orders Orders - ANALY ESTRADA RESIDENT Procedure Category Date Status Time Notify Provider NOTICE 05/18/24 Transmitted Malnutrition 10:26 Increase Calorie NOURISH 05/18/24 Transmitted Intake 10:26 Nutritional NOURISH 05/18/24 Transmitted Supplements 10:26 Dietary NOTICE 05/18/24 Transmitted Recommendations 10:26 * Hematology/Oncology CONS 05/19/24 Transmitted Consult 06:40 Potassium Chl PHA 05/19/24 In Process 20meq/50ml (Potassium 06:45 Dietary Evaluation Review Recommendations by RD: Increase Calorie Intake, Protein Supplementation Comments: 1) Cardiac Msoft diet 2) Ensure Enlive 8fl oz BID 3) VitC 500mg BID, zinc sulfate 220mg 1 tab daily x 10 days, MVI 1 tab daily 4) Continue current plan of care Expected Outcomes/Goals: Pt will meet >75% estimated needs Fu 5-7 days Food and Nutrition Intake (Sev: <50% est energy req 5days Interpretation of weight loss: >5% in 1 month Protein Calorie Malnutrition: Severe Is there a minimum of two crit: Yes Date of Service: May 19, 2024 Billing Provider: MICHEL KINCAID MD Common Visit Codes: [id number] INP/OBS CARE(HIGH) ANALY ESTRADA RESIDENT May 19, 2024 09:22 MICHEL KINCAID MD May 19, 2024 22:20
[2024-05-19] MEDS: POTASSIUM CHL 20MEQ/50ML 150 ML IV SCH (10:15)
--- NOTE | 2024-05-19 12:06 | DVHPN2 ---
Progress Note Date Seen: May 19, 2024 Resident Creating Document: BEATA PALOMINO RESIDENT Has the PT tested + for MRSA If YES, has PT been informed?: No Medical Necessity Reason Pt with a Central, PICC or Fol: No Subjective Review of Systems 73-year-old male presented to ER with complains of generalized weakness and hypotension Patient is seen in ER bed 10. History by patient and family at bedside Patient recently diagnosed with C diff, one-week ago, treated with antibiotics at senior living facility. Patient admits to frequency of bowel movements improving at this time No melena or red blood in stool Patient also hospitalized two months ago with sepsis and COVID Patient has weight loss of 20 lb in the past two weeks due to poor appetite. Patient also complains of nausea and vomiting when he tries to eat food. No abdominal pain SP colonoscopy four years ago Gastro group polyps removed. He was on mycophenolate (for myositis) and colchicine, both of which have now been discontinued due to neutropenia Objective vital signs Vital Sign Date Time Temp Pulse Resp B/P (MAP) Pulse Ox O2 Delivery O2 Flow Rate FiO2 05/19/24 09:00 97.8 101 18 126/78 (94) 100 97.8 05/19/24 08:00 Nasal Cannula* 2 28 Total Intake and Output 05/18/24 05/18/24 05/19/24 15:00 23:00 07:00 Intake Total 1230 ml 1050 ml Output Total 600 ml 300 ml Balance 630 ml 750 ml medications Current Medications Medications Dose Ordered Sig/Mia Route Start Time Stop Time Status Last Admin Dose Admin Sodium Chloride 1,000 ml @ 60 mls/hr [id number] IV 05/16/24 09:00 05/18/24 12:03 60 MLS/HR Acetaminophen/ Hydrocodone Bitart 1 tab Q4HP PRN PO 05/16/24 09:00 05/19/24 00:46 1 TAB Ondansetron HCl 4 mg Q4HP PRN IV 05/16/24 09:00 05/16/24 16:05 4 MG Acetaminophen 650 mg Q6HP PRN PO 05/16/24 09:00 Losartan Potassium 50 mg BIDP PRN PO 05/16/24 15:00 Pantoprazole Sodium 40 mg DAILY PO 05/17/24 10:00 05/19/24 10:14 40 MG Patient Own Medication 1 tab BID PRN PO 05/16/24 16:45 Hold Metronidazole 100 ml @ 100 mls/hr Q8HR IV 05/17/24 07:30 05/19/24 05:12 100 MLS/HR Saccharomyces Boulardii 250 mg DAILY PO 05/18/24 10:00 05/19/24 10:14 250 MG Cholestyramine Resin 4 gm DAILY@11 GT 05/18/24 11:00 05/19/24 10:13 4 GM Loperamide HCl 2 mg PRN PRN PO 05/17/24 15:15 Doxycycline Hyclate 100 ml @ 50 mls/hr Q12H IV 05/17/24 16:00 05/19/24 03:01 50 MLS/HR Cefepime HCl 50 ml @ 12.5 mls/hr Q12H IV 05/18/24 06:00 05/19/24 05:14 12.5 MLS/HR Tbo-Filgrastim 300 mcg DAILY SC 05/19/24 10:00 05/22/24 09:59 Examination General: Alert, oriented x3, moderate distress Respiratory: No increased work of breathing Cardiovascular: No murmurs, regular rhythm GI: Non-distended, no tenderness Neuro: No focal deficits Skin multiple skin excoriations laboratory and microbiology Laboratory Tests 05/19/24 05:13 Test 05/19/24 05:13 Range/Units Serum Glucose 84 74-106 mg/dL Microbiology Date/Time Source Procedure Growth Status 05/18/24 05:50 Voided Urine Urine Culture - Preliminary Resulted 05/18/24 05:39 Nose MRSA Screen - Final Complete 05/17/24 08:05 Blood Blood Culture - Preliminary NO GROWTH AFTER 48 HOURS OF INCUBATION. Resulted 05/16/24 17:52 Stool Clostridium difficile Toxin Assay - Final Complete Problem List/Assessment/Plan Problem List/Assessment/Plan # History C diff colitis # Nausea and vomiting # Weight loss # Pancytopenia due to mycophenolate # diarrhea Plan: - Stool for C diff - negative - Continue broad-spectrum antibiotics - Discontinued mycophenolate - Start cholestyramine 4 g daily - Florastor 250 mg p.o. daily - Loperamide 2 mg p.o. p.r.n. after each bowel movement. -colonoscopy four years ago Gastro group polyps removed - advised patient to repeat colonoscopy as outpatient - Heme-Onc was consult for pancytopenia Thank you so much for the opportunity to consult on your patient. GI team will follow the patient. In case of any questions or concerns please feel free to reach out. Case discussed with Dr. Brendan Valles. The patient and caregiver team agreed to the plan. Plan discussed with: Patient Dietary Evaluation Review Recommendations by RD: Increase Calorie Intake, Protein Supplementation Comments: 1) Cardiac Msoft diet 2) Ensure Enlive 8fl oz BID 3) VitC 500mg BID, zinc sulfate 220mg 1 tab daily x 10 days, MVI 1 tab daily 4) Continue current plan of care Expected Outcomes/Goals: Pt will meet >75% estimated needs Fu 5-7 days Food and Nutrition Intake (Sev: <50% est energy req 5days Interpretation of weight loss: >5% in 1 month Protein Calorie Malnutrition: Severe Is there a minimum of two crit: Yes BEATA PALOMINO RESIDENT May 19, 2024 12:06
--- NOTE | 2024-05-19 12:54 | DVHINCON2 ---
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 Has been on methotrexate but has not taken it for the last 3 months. He has lost 30 pounds of weight over the last 4 months he has been having swelling of the lower extremities with sores on the legs. Has a history of hypertension and hyperlipidemia. He is admitted to the hospital with generalized weakness. He recently found to have C. difficile. He lives at an assisted living facility. Was noted to be lethargic, not eating or drinking for 1 week. Was hypotensive. Complained of shortness of breath. His CBC showed a white count of 1.1 hemoglobin 8.4 platelets 162 from 05/18/2024 and today the CBC showed a white count of 0.9 hemoglobin 8.1 platelets 114,000 Chemistry showed potassium 2.9 BUN 46 creatinine 1.58 total protein 4.8 albumin 2.8 HIV 1 and [address] of the abdomen pelvis with IV contrast showed no acute abdominal or pelvic findings Chest x-ray was unremarkable Couple of months back the patient was diagnosed to have COVID and sepsis Past Medical History Myositis Family History: Patient reports no known family medical history. Family History Father had throat cancer Social History No smoking drinking or drugs Allergies: Coded Allergies: NO KNOWN ALLERGIES (Unverified , 04/30/21) Home Meds Reported Medications Dexlansoprazole (Dexilant) 60 Mg Cap, 60 MG PO DAILY, CAP 05/16/24 Mycophenolate Mofetil (Mycophenolate Mofetil) 500 Mg Tab, 500 MG PO TID, TAB 05/16/24 Losartan Potassium (Losartan Potassium) 50 Mg Tab, 1 TAB PO BIDP PRN, #30 TAB 5 Refills 05/16/24 Diclofenac Potassium (Diclofenac Potassium) 50 Mg Tab, 1 TAB PO BID PRN, #60 TAB 1 Refill 05/16/24 Colchicine (Colchicine) 0.6 Mg Cap, 0.6 MG PO BID, CAP 05/16/24 Current Medications Current Medications Medications (Trade) Dose Ordered Sig/Mia Route PRN Reason Start Time Stop Time Status Last Admin Potassium Chloride 150 ml @ 25 mls/hr Q2H IV 05/19/24 06:45 3/13/25 11:33 DC 05/19/24 10:15 Tbo-Filgrastim (Granix) 300 mcg DAILY SC 05/19/24 10:00 05/22/24 09:59 Vital Signs Vital Signs Date Time Temp Pulse Resp B/P (MAP) Pulse Ox O2 Delivery O2 Flow Rate FiO2 05/19/24 09:00 97.8 101 18 126/78 (94) 100 97.8 05/19/24 08:00 Nasal Cannula* 2 28 Physical Exam GENERAL: The patient is a moderately built and nourished ,in no distress, alert and oriented. HEAD AND NECK: Unremarkable. No neck nodes or masses. Conjunctivae: Unremarkable for any mucosal hemorrhage or inflammation. Thyroid is nonpalpable. Throat is unremarkable. SPINE: No deformities or tenderness. CHEST: Chest wall, no tenderness. LUNGS: Clear. CARDIOVASCULAR: Regular sinus rhythm. No murmurs or gallops. ABDOMEN: No organomegaly, tenderness or ascites. Bowel sounds present. EXTREMITIES: No clubbing, edema or cyanosis. Peripheral pulses palpable. No calf tenderness. Has mild swelling of the lower extremities and some scattered source LYMPHATICS: No significant lymphadenopathy. NEUROLOGIC: No focal neurological deficits. SKIN: Unremarkable for any petechiae, purpura, or ecchymosis. Psych: No abnormalities Available data reviewed Labs/Diagnostic Data Labs Test 05/19/24 05:13 05/18/24 05:19 05/17/24 10:38 05/17/24 09:25 Range/Units White Blood Count 0.9 *L 4.4-10.8 10^3/uL Red Blood Count 2.64 L 4.5-5.90 10^6/uL Hemoglobin 8.1 L 13.5-17.5 g/dL Hematocrit 23.9 L 41.0-53.0 % Mean Corpuscular Volume 90.6 80.0-100.0 fL Mean Corpuscular Hemoglobin 30.8 28.0-32.0 pg Mean Corpuscular Hemoglobin Concent 34.0 32.0-36.0 g/dL Red Cell Distribution Width 16.9 H 11.8-14.3 % Platelet Count 114 L 140-450 10^3/uL Mean Platelet Volume 7.3 6.9-10.8 fL Neutrophils (%) (Auto) 10.0 L 37.0-80.0 % Lymphocytes (%) (Auto) 76.1 H 10.0-50.0 % Monocytes (%) (Auto) 7.0 0.0-12.0 % Eosinophils (%) (Auto) 6.5 0.0-7.0 % Basophils (%) (Auto) 0.4 0.0-2.0 % Neutrophils # (Auto) 0.1 L 1.6-8.6 10 ^3/uL Lymphocytes # (Auto) 0.7 0.4-5.4 10 ^3/uL Monocytes # (Auto) 0.1 0-1.3 10 ^3/uL Eosinophils # (Auto) 0.1 0-0.8 10 ^3/uL Basophils # (Auto) 0 0-0.2 10 ^3/uL Nucleated Red Blood Cells 0.1 % Sodium Level 137 136-145 mmol/L Potassium Level 2.9 L 3.5-5.1 mmol/L Chloride Level 109 H 98-107 mmol/L Carbon Dioxide Level 16 L 20-31 mmol/L Anion Gap 12 5-15 Blood Urea Nitrogen 46 #H 9-23 mg/dL Creatinine 1.58 H 0.700-1.30 mg/dL Glomerular Filtration Rate Calc 46 >90 mL/min BUN/Creatinine Ratio 29.1 H 10.0-20.0 Serum Glucose 84 74-106 mg/dL Calcium Level 8.5 L 8.7-10.4 mg/dL Total Bilirubin 0.7 0.2-1.0 mg/dL Aspartate Amino Transferase (AST) 12 L 13-40 U/L Alanine Aminotransferase (ALT) < 9 7-40 U/L Alkaline Phosphatase 55 46-116 U/L Total Protein 4.8 L 5.7-8.2 g/dL Albumin 2.8 L 3.2-4.8 g/dL Platelet Estimate Adequate Erythrocyte Sedimentation Rate 67 H 0-20 mm/hr Reticulocyte Count (auto) 0.22 L 0.5-1.5 % Haptoglobin 266 34-355 mg/dL Urine Color Light-yellow Yellow Urine Clarity Clear Clear Urine pH 5.5 5.0-9.0 Urine Specific [place] 1.017 1.001-1.035 Urine Protein Negative Negative Urine Ketones Negative Negative Urine Blood Negative Negative /uL Urine Nitrite Negative Negative Urine Bilirubin Negative Negative Urine Urobilinogen Normal Negative mg/dL Urine Leukocyte Esterase Negative Negative /uL Urine RBC 1 0 - 3 /hpf Urine Microscopic WBC < 1 0-3 /HPF Urine Squamous Epithelial Cells Few <5 /hpf Urine Bacteria None seen None Seen /hpf Urine Creatinine 32.08 30.0-125.0 mg/dL Urine Sodium 125 40-220 mmol/L Urine Glucose 4+ H Normal mg/dL Urine Total Protein 17.8 H 1-14 mg/dL Test 05/17/24 06:36 05/15/24 22:26 Range/Units Differential Total Cells Counted 100.0 100 Neutrophils % (Manual) 9 L 37.0-80.0 Band Neutrophils % (Manual) 4 Lymphocytes % (Manual) 81 H 10.0-50.0 Monocytes % (Manual) 3 0-12 Eosinophils % (Manual) 3 0-7 Basophils % (Manual) 0 0.0-2.0 Metamyelocytes % (manual) 0 Myelocytes % (Manual) 0 Promyelocytes % (Manual) 0 Blast Cells % (Manual) 0 Reactive Lymphocytes 0 Magnesium Level 2.1 1.6-2.6 mg/dL Lactate Dehydrogenase 113 L 120-246 U/L Creatine Kinase 46 46-171 U/L C-Reactive Protein High Sensitivity 16.11 H <1.0 mg/dL B-Type Natriuretic Peptide 57.51 0-100 pg/mL HIV (1&2) Antibody Negative Negative Anisocytosis (manual) Slight Ovalocytes Few Lactic Acid Level 1.0 0.4-2.0 mmol/L Lipase 68 H 12-53 U/L Microbiology Date/Time Source Procedure Growth Status 05/18/24 05:50 Voided Urine Urine Culture - Preliminary Resulted 05/18/24 05:39 Nose MRSA Screen - Final Complete 05/17/24 08:05 Blood Blood Culture - Preliminary NO GROWTH AFTER 48 HOURS OF INCUBATION. Resulted 05/16/24 17:52 Stool Clostridium difficile Toxin Assay - Final Complete Assessment 1. Pancytopenia which could be secondary to myositis and mycophenolate and history of having taken methotrexate. May rule out bone marrow pathology. Lack of B12 hepatitis 2. Recent C. difficile with diarrhea 3. Weight loss Plan/Recommendation Supportive treatment for the C. difficile Granix for 3 days Check B12, hepatitis panel, HIV Plan discussed with: Patient PAT MARTÍNEZ MD May 19, 2024 12:54
[2024-05-19] MEDS: FILGRASTIM (TBO) 300 MCG/0.5 ML SYRG SC SCH (13:19)
[2024-05-19] MEDS: POTASSIUM CHLORIDE 40 MEQ, LIDOCAINE 1% (LOCAL ANESTH.) 4 ML in SODIUM CHL 0.9% 250 ML IV ONE (13:20)
[2024-05-19] MEDS: MELATONIN 5 MG TAB PO SCH (23:51)
[2024-05-20 01:00] VITALS: BP 139/80; PULSE 112; RESP 20; TEMP 97.5; O2SAT 97
[2024-05-20 05:00] VITALS: BP 146/79; PULSE 101; RESP 18; TEMP 97.4; O2SAT 100
[2024-05-20 05:32] LABS: Hematocrit 25.3 % (41.0-53.0); Hemoglobin 8.4 g/dL (13.5-17.5); Mean Corpuscular Hemoglobin 30.4 pg (28.0-32.0); Mean Corpuscular Hgb Conc. 33.3 g/dL (32.0-36.0); Mean Corpuscular Volume 91.5 fL (80.0-100.0); Platelet Count (auto) 92 10^3/uL (140-450); Red Blood Cells 2.76 10^6/uL (4.5-5.90); Red Cell Distribution Width 16.9 % (11.8-14.3)
[2024-05-20 05:49] LABS: Alanine Aminotransferase 10 U/L (7-40); Alkaline Phosphatase 64 U/L (46-116); Anion Gap 10 (5-15); Aspartate Aminotransferase 14 U/L (13-40); BUN/Creatinine Ratio 25.6 (10.0-20.0); Basophils % (manual) 0 (0.0-2.0); Blast Cells 0; Eosinophils % (manual) 0 (0-7); Glucose 100 mg/dL (74-106); Metamyelocytes % 0; Myelocytes % 0; Promyelocytes % 0; Reactive Lymphocytes 0; Sodium 139 mmol/L (136-145)
[2024-05-20 05:50] LABS: Bilirubin, Total 0.5 mg/dL (0.2-1.0)
[2024-05-20 05:52] LABS: Albumin 2.9 g/dL (3.2-4.8); Blood Urea Nitrogen 30 mg/dL (9-23); Calcium 8.3 mg/dL (8.7-10.4); Carbon Dioxide 17 mmol/L (20-31); Chloride 112 mmol/L (98-107); Potassium 3.4 mmol/L (3.5-5.1)
[2024-05-20] MEDS: POTASSIUM CHL 20 Meq TABLET PO ONE (06:56)
[2024-05-20 08:09] LABS: Band Neutrophils % (manual) 1; Lymphocytes % (manual) 87 (10.0-50.0); Monocytes % (manual) 2 (0-12)
[2024-05-20 08:10] LABS: Platelet Estimate Decreased
[2024-05-20 09:56] VITALS: BP 134/77; PULSE 93; RESP 19; TEMP 97.4; O2SAT 99
--- NOTE | 2024-05-20 12:21 | DVHPN2 ---
Progress Note Date Seen: May 20, 2024 Resident Creating Document: BEATA PALOMINO RESIDENT Has the PT tested + for MRSA If YES, has PT been informed?: No Medical Necessity Reason Pt with a Central, PICC or Fol: No Subjective Review of Systems 73-year-old male presented to ER with complains of generalized weakness and hypotension Patient is seen in ER bed 10. History by patient and family at bedside Patient recently diagnosed with C diff, one-week ago, treated with antibiotics at snf facility. Patient admits to frequency of bowel movements improving at this time No melena or red blood in stool Patient also hospitalized two months ago with sepsis and COVID Patient has weight loss of 20 lb in the past two weeks due to poor appetite. Patient also complains of nausea and vomiting when he tries to eat food. No abdominal pain SP colonoscopy four years ago Gastro group polyps removed. He was on mycophenolate (for myositis) and colchicine, both of which have now been discontinued due to neutropenia. Objective vital signs Vital Sign Date Time Temp Pulse Resp B/P (MAP) Pulse Ox O2 Delivery O2 Flow Rate FiO2 05/20/24 09:56 97.4 93 19 134/77 (96) 99 97.4 05/20/24 08:04 Nasal Cannula* 2 28 Total Intake and Output 05/19/24 05/19/24 05/20/24 15:00 23:00 07:00 Intake Total 100 ml 650 ml 500 ml Output Total 700 ml Balance 100 ml 650 ml -200 ml medications Current Medications Medications Dose Ordered Sig/Mia Route Start Time Stop Time Status Last Admin Dose Admin Sodium Chloride 1,000 ml @ 60 mls/hr [id number] IV 05/16/24 09:00 05/18/24 12:03 60 MLS/HR Acetaminophen/ Hydrocodone Bitart 1 tab Q4HP PRN PO 05/16/24 09:00 05/19/24 00:46 1 TAB Ondansetron HCl 4 mg Q4HP PRN IV 05/16/24 09:00 05/16/24 16:05 4 MG Acetaminophen 650 mg Q6HP PRN PO 05/16/24 09:00 Losartan Potassium 50 mg BIDP PRN PO 05/16/24 15:00 Pantoprazole Sodium 40 mg DAILY PO 05/17/24 10:00 05/20/24 10:33 40 MG Patient Own Medication 1 tab BID PRN PO 05/16/24 16:45 Hold Metronidazole 100 ml @ 100 mls/hr Q8HR IV 05/17/24 07:30 05/20/24 06:35 100 MLS/HR Saccharomyces Boulardii 250 mg DAILY PO 05/18/24 10:00 05/20/24 10:33 250 MG Cholestyramine Resin 4 gm DAILY@11 GT 05/18/24 11:00 05/19/24 10:13 4 GM Loperamide HCl 2 mg PRN PRN PO 05/17/24 15:15 Doxycycline Hyclate 100 ml @ 50 mls/hr Q12H IV 05/17/24 16:00 05/20/24 04:10 50 MLS/HR Cefepime HCl 50 ml @ 12.5 mls/hr Q12H IV 05/18/24 06:00 05/20/24 06:41 12.5 MLS/HR Tbo-Filgrastim 300 mcg DAILY SC 05/19/24 10:00 05/22/24 09:59 05/20/24 10:32 300 MCG Melatonin 5 mg HS PO 05/19/24 22:00 05/19/24 23:51 5 MG Examination General: Alert, oriented x3, moderate distress Respiratory: No increased work of breathing Cardiovascular: No murmurs, regular rhythm GI: Non-distended, no tenderness Neuro: No focal deficits Skin multiple skin excoriations. laboratory and microbiology Laboratory Tests 05/20/24 05:12 Test 05/20/24 05:12 Range/Units Serum Glucose 100 74-106 mg/dL Microbiology Date/Time Source Procedure Growth Status 05/18/24 05:50 Voided Urine Urine Culture - Final Complete 05/18/24 05:39 Nose MRSA Screen - Final Complete 05/17/24 08:05 Blood Blood Culture - Preliminary NO GROWTH AFTER 72 HOURS OF INCUBATION. Resulted 05/16/24 17:52 Stool Clostridium difficile Toxin Assay - Final Complete Problem List/Assessment/Plan Problem List/Assessment/Plan # History C diff colitis # Nausea and vomiting # Weight loss # Pancytopenia due to mycophenolate # diarrhea Plan: - Stool for C diff - negative - shiga toxin negative - HIV negative - BON direct ordered -vitamin B12 level normal - hepatitis panel pending - Continue broad-spectrum antibiotics - Discontinued mycophenolate -continue cholestyramine 4 g daily - Florastor 250 mg p.o. daily - Loperamide 2 mg p.o. p.r.n. after each bowel movement. -colonoscopy four years ago Gastro group polyps removed - advised patient to repeat colonoscopy as outpatient - Heme-Onc consult appreciated for pancytopenia. - we will monitor lab Thank you so much for the opportunity to consult on your patient. GI team will follow the patient. In case of any questions or concerns please feel free to reach out. Case discussed with Dr. Brendan Valles. The patient and caregiver team agreed to the plan. Plan discussed with: Patient Dietary Evaluation Review Recommendations by RD: Increase Calorie Intake, Protein Supplementation Comments: 1) Cardiac Msoft diet 2) Ensure Enlive 8fl oz BID 3) VitC 500mg BID, zinc sulfate 220mg 1 tab daily x 10 days, MVI 1 tab daily 4) Continue current plan of care Expected Outcomes/Goals: Pt will meet >75% estimated needs Fu 5-7 days Food and Nutrition Intake (Sev: <50% est energy req 5days Interpretation of weight loss: >5% in 1 month Protein Calorie Malnutrition: Severe Is there a minimum of two crit: Yes BEATA PALOMINO RESIDENT May 20, 2024 12:21
--- NOTE | 2024-05-20 13:08 | DVHPNRES ---
Progress Note Date Seen: May 20, 2024 Resident Creating Document: ANALY ESTRADA RESIDENT Has the PT tested + for MRSA If YES, has PT been informed?: No Medical Necessity Reason Pt with a Central, PICC or Fol: No Subjective Review of Systems 73-year-old male with a past medical history of hypertension, hyperlipidemia, inclusion body myositis, and a recent diagnosis of Clostridioides difficile infection, presenting with generalized weakness. He resides in a long-term and has been noted to be lethargic, not eating well, and experiencing fatigue with minimal exertion. Patient also stated few episodes of diarrhea He was on mycophenolate (for myositis) and colchicine, both of which have now been discontinued due to neutropenia. His clinical course has been complicated by worsening weakness, an elevated CRP, and the initiation of broad-spectrum antibiotics (ceftriaxone, metronidazole, vancomycin) due to concern for possible infection. Objective vital signs Vital Sign Date Time Temp Pulse Resp B/P (MAP) Pulse Ox O2 Delivery O2 Flow Rate FiO2 05/20/24 09:56 97.4 93 19 134/77 (96) 99 97.4 05/20/24 08:04 Nasal Cannula* 2 28 Total Intake and Output 05/19/24 05/19/24 05/20/24 15:00 23:00 07:00 Intake Total 100 ml 650 ml 500 ml Output Total 700 ml Balance 100 ml 650 ml -200 ml medications Current Medications Medications Dose Ordered Sig/Mia Route Start Time Stop Time Status Last Admin Dose Admin Sodium Chloride 1,000 ml @ 60 mls/hr [id number] IV 05/16/24 09:00 05/18/24 12:03 60 MLS/HR Acetaminophen/ Hydrocodone Bitart 1 tab Q4HP PRN PO 05/16/24 09:00 05/19/24 00:46 1 TAB Ondansetron HCl 4 mg Q4HP PRN IV 05/16/24 09:00 05/16/24 16:05 4 MG Acetaminophen 650 mg Q6HP PRN PO 05/16/24 09:00 Losartan Potassium 50 mg BIDP PRN PO 05/16/24 15:00 Pantoprazole Sodium 40 mg DAILY PO 05/17/24 10:00 05/20/24 10:33 40 MG Patient Own Medication 1 tab BID PRN PO 05/16/24 16:45 Hold Metronidazole 100 ml @ 100 mls/hr Q8HR IV 05/17/24 07:30 05/20/24 06:35 100 MLS/HR Saccharomyces Boulardii 250 mg DAILY PO 05/18/24 10:00 05/20/24 10:33 250 MG Cholestyramine Resin 4 gm DAILY@11 GT 05/18/24 11:00 05/19/24 10:13 4 GM Loperamide HCl 2 mg PRN PRN PO 05/17/24 15:15 Doxycycline Hyclate 100 ml @ 50 mls/hr Q12H IV 05/17/24 16:00 05/20/24 04:10 50 MLS/HR Cefepime HCl 50 ml @ 12.5 mls/hr Q12H IV 05/18/24 06:00 05/20/24 06:41 12.5 MLS/HR Tbo-Filgrastim 300 mcg DAILY SC 05/19/24 10:00 05/22/24 09:59 05/20/24 10:32 300 MCG Melatonin 5 mg HS PO 05/19/24 22:00 05/19/24 23:51 5 MG Examination General: Alert, oriented x3, Respiratory: clear lungs Cardiovascular: No murmurs, regular rhythm GI: Non-distended, no tenderness Neurologic: No focal deficits Skin multiple skin excoriations laboratory and microbiology Laboratory Tests 05/20/24 05:12 Test 05/20/24 05:12 Range/Units Serum Glucose 100 74-106 mg/dL Microbiology Date/Time Source Procedure Growth Status 05/18/24 05:50 Voided Urine Urine Culture - Final Complete 05/18/24 05:39 Nose MRSA Screen - Final Complete 05/17/24 08:05 Blood Blood Culture - Preliminary NO GROWTH AFTER 72 HOURS OF INCUBATION. Resulted 05/16/24 17:52 Stool Clostridium difficile Toxin Assay - Final Complete Problem List/Assessment/Plan Problem List/Assessment/Plan #Possible drug induced neutropenia improving #Possible drug induced anemia #Sepsis? #C difficile infection recently #VALERIANO possible ATN improving #Inclusion bodies myositis #Hypertension #Hypokalemia #Thrombocytopenia Diet: mechanical soft IV fluids: 1 lt given today keep 60 cc/h doxycycline + cefepime + metronidazole IV Neupogen WBC are trending down STOP mycophenolate and colchicine due to neutropenia Protonix IV CK normal , ESR high , haptoglobin normal , reticulocytes low, stools studies pending , urine studies: Fena elevated possible ATN , peripheral smear, blood culture prelim neg , Clostridium difficile toxin neg wound culture: Moderate growth: Gram Positive Rods resembling Diphtheroids GI on board Hematology consult K PO Temazepam PO PT Case discussed with Dr Kincaid Plan discussed with: Patient, Other (rn) My Orders My Orders Orders - ANALY ESTRADA RESIDENT Procedure Category Date Status Time Pt Request For Service PT 05/20/24 Logged 12:31 Dietary Evaluation Review Recommendations by RD: Increase Calorie Intake, Protein Supplementation Comments: 1) Cardiac Msoft diet 2) Ensure Enlive 8fl oz BID 3) VitC 500mg BID, zinc sulfate 220mg 1 tab daily x 10 days, MVI 1 tab daily 4) Continue current plan of care Expected Outcomes/Goals: Pt will meet >75% estimated needs Fu 5-7 days Food and Nutrition Intake (Sev: <50% est energy req 5days Interpretation of weight loss: >5% in 1 month Protein Calorie Malnutrition: Severe Is there a minimum of two crit: Yes Date of Service: May 20, 2024 Billing Provider: MICHEL KINCAID MD Common Visit Codes: [id number] INP/OBS CARE(HIGH) ANALY ESTRADA RESIDENT May 20, 2024 13:08 MICHEL KINCAID MD May 21, 2024 14:06
[2024-05-20 14:23] VITALS: BP 139/75; PULSE 93; RESP 19; TEMP 97.5; O2SAT 99
[2024-05-20 17:00] VITALS: BP 113/72; PULSE 97; RESP 19; TEMP 97.7; O2SAT 100
[2024-05-20 21:00] VITALS: BP 123/61; PULSE 105; RESP 17; TEMP 97.6; O2SAT 100
[2024-05-21] VITALS (7 sets, daily range): BP systolic 101–140; BP diastolic 68–83; PULSE 87–110; RESP 16–20; TEMP 96.3–98.2; O2SAT 98–100
[2024-05-21 08:24] LABS: Hemoglobin 9.5 g/dL (13.5-17.5)
[2024-05-21 08:26] LABS: Hematocrit 27.9 % (41.0-53.0); Platelet Count (auto) 67 10^3/uL (140-450); Red Blood Cells 3.07 10^6/uL (4.5-5.90); Red Cell Distribution Width 16.9 % (11.8-14.3)
[2024-05-21 08:33] LABS: White Blood Cell 1.4 10^3/uL (4.4-10.8)
[2024-05-21 08:34] LABS: Band Neutrophils % (manual) 0; Basophils % (manual) 0 (0.0-2.0); Blast Cells 0; Metamyelocytes % 0; Myelocytes % 0; Promyelocytes % 0; Reactive Lymphocytes 0
[2024-05-21 08:45] LABS: Alanine Aminotransferase 11 U/L (7-40); Alkaline Phosphatase 70 U/L (46-116); Anion Gap 10 (5-15); Aspartate Aminotransferase 16 U/L (13-40); BUN/Creatinine Ratio 20.8 (10.0-20.0); Bilirubin, Total 0.5 mg/dL (0.2-1.0); Blood Urea Nitrogen 21 mg/dL (9-23); Glucose 91 mg/dL (74-106); Potassium 3.5 mmol/L (3.5-5.1); Sodium 138 mmol/L (136-145)
[2024-05-21 08:48] LABS: Calcium 8.5 mg/dL (8.7-10.4); Carbon Dioxide 17 mmol/L (20-31); Chloride 111 mmol/L (98-107); Total Protein 5.4 g/dL (5.7-8.2)
--- NOTE | 2024-05-21 09:18 | DVHPNRES ---
Progress Note Date Seen: May 21, 2024 Resident Creating Document: ELISABETH SCHROEDER RESIDENT Has the PT tested + for MRSA If YES, has PT been informed?: No Medical Necessity Reason Pt with a Central, PICC or Fol: No Subjective Review of Systems 73-year-old male with a past medical history of hypertension, hyperlipidemia, inclusion body myositis, and a recent diagnosis of Clostridioides difficile infection, presenting with generalized weakness. He resides in a [facility]pc and has been noted to be lethargic, not eating well, and experiencing fatigue with minimal exertion. Patient also stated few episodes of diarrhea He was on mycophenolate (for myositis) and colchicine, both of which have now been discontinued due to neutropenia. His clinical course has been complicated by worsening weakness, an elevated CRP, and the initiation of broad-spectrum antibiotics (ceftriaxone, metronidazole, vancomycin) due to concern for possible infection. 05/21-Patient is hemodynamically stable, white cell increased from 1-1.4, hemoglobin stable, platelets downtrending to 67. Patient is not actively bleeding. Pending hepatitis panel and BON. Barrel Endshaker Adjuster recommended may rule out bone marrow pathology. Patient is ambulatory and eating well. Potassium supplemented 50 mEq p.o.. Objective vital signs Vital Sign Date Time Temp Pulse Resp B/P (MAP) Pulse Ox O2 Delivery O2 Flow Rate FiO2 05/21/24 08:05 97.3 99 18 137/79 (98) 100 97.3 05/20/24 20:00 Nasal Cannula* 2 28 Total Intake and Output 05/20/24 05/20/24 05/21/24 15:00 23:00 07:00 Intake Total 150 ml 885 ml 420 ml Output Total 300 ml 400 ml Balance 150 ml 585 ml 20 ml medications Current Medications Medications Dose Ordered Sig/Mia Route Start Time Stop Time Status Last Admin Dose Admin Sodium Chloride 1,000 ml @ 60 mls/hr [id number] IV 05/16/24 09:00 05/21/24 05:44 60 MLS/HR Acetaminophen/ Hydrocodone Bitart 1 tab Q4HP PRN PO 05/16/24 09:00 05/19/24 00:46 1 TAB Ondansetron HCl 4 mg Q4HP PRN IV 05/16/24 09:00 05/16/24 16:05 4 MG Acetaminophen 650 mg Q6HP PRN PO 05/16/24 09:00 Losartan Potassium 50 mg BIDP PRN PO 05/16/24 15:00 Pantoprazole Sodium 40 mg DAILY PO 05/17/24 10:00 05/20/24 10:33 40 MG Patient Own Medication 1 tab BID PRN PO 05/16/24 16:45 Hold Metronidazole 100 ml @ 100 mls/hr Q8HR IV 05/17/24 07:30 05/21/24 05:43 100 MLS/HR Saccharomyces Boulardii 250 mg DAILY PO 05/18/24 10:00 05/20/24 10:33 250 MG Cholestyramine Resin 4 gm DAILY@11 GT 05/18/24 11:00 05/19/24 10:13 4 GM Loperamide HCl 2 mg PRN PRN PO 05/17/24 15:15 Doxycycline Hyclate 100 ml @ 50 mls/hr Q12H IV 05/17/24 16:00 05/21/24 03:03 50 MLS/HR Cefepime HCl 50 ml @ 12.5 mls/hr Q12H IV 05/18/24 06:00 05/21/24 05:46 12.5 MLS/HR Tbo-Filgrastim 300 mcg DAILY SC 05/19/24 10:00 05/22/24 09:59 05/20/24 10:32 300 MCG Melatonin 5 mg HS PO 05/19/24 22:00 05/20/24 20:29 5 MG Examination General: Alert, oriented x3, Respiratory: clear lungs Cardiovascular: No murmurs, regular rhythm GI: Non-distended, no tenderness Neurologic: No focal deficits Skin multiple skin excoriations laboratory and microbiology Laboratory Tests 05/21/24 07:17 Test 05/21/24 07:17 Range/Units Serum Glucose 91 74-106 mg/dL Microbiology Date/Time Source Procedure Growth Status 05/18/24 05:50 Voided Urine Urine Culture - Final Complete 05/18/24 05:39 Nose MRSA Screen - Final Complete 05/17/24 08:05 Blood Blood Culture - Preliminary NO GROWTH AFTER 72 HOURS OF INCUBATION. Resulted 05/16/24 17:52 Stool Clostridium difficile Toxin Assay - Final Complete Labs and/or images reviewed: Labs reviewed by me, Image(s) reviewed by me Problem List/Assessment/Plan Problem List/Assessment/Plan 3/15-Patient is hemodynamically stable, white cell increased from 1-1.4, hemoglobin stable, platelets downtrending to 67. Patient is not actively bleeding. Pending hepatitis panel and BON. Barrel Endshaker Adjuster recommended may rule out bone marrow pathology. Patient is ambulatory and eating well. Potassium supplemented 50 mEq p.o.. #Possible drug induced neutropenia improving #Possible drug induced anemia #Sepsis? #C difficile infection recently #VALERIANO possible ATN improving #Inclusion bodies myositis #Hypertension #Hypokalemia #Thrombocytopenia Diet: mechanical soft IV fluids: 1 lt given today keep 60 cc/h doxycycline + cefepime + metronidazole IV Neupogen WBC are trending down STOP mycophenolate and colchicine due to neutropenia Protonix IV CK normal , ESR high , haptoglobin normal , reticulocytes low, stools studies pending , urine studies: Fena elevated possible ATN , peripheral smear, blood culture prelim neg , Clostridium difficile toxin neg wound culture: Moderate growth: Gram Positive Rods resembling Diphtheroids GI on board Hematology consult -start Granix 05/19 300 mg daily K PO Temazepam PO PT Case discussed with Dr Ash Plan discussed with: Patient My Orders My Orders Orders - ELISABETH SCHROEDER RESIDENT Procedure Category Date Status Time Potassium Effervesent PHA 05/21/24 Logged Tab (Klor-Con/Ef) 09:15 Dietary Evaluation Review Recommendations by RD: Increase Calorie Intake, Protein Supplementation Comments: 1) Cardiac Msoft diet 2) Ensure Enlive 8fl oz BID 3) VitC 500mg BID, zinc sulfate 220mg 1 tab daily x 10 days, MVI 1 tab daily 4) Continue current plan of care Expected Outcomes/Goals: Pt will meet >75% estimated needs Fu 5-7 days Food and Nutrition Intake (Sev: <50% est energy req 5days Interpretation of weight loss: >5% in 1 month Protein Calorie Malnutrition: Severe Is there a minimum of two crit: Yes Date of Service: May 21, 2024 Billing Provider: MICHEL ASH MD Common Visit Codes: [id number] INP/OBS CARE(HIGH) ELISABETH SCHROEDER RESIDENT May 21, 2024 09:18 MICHEL ASH MD May 21, 2024 14:07
[2024-05-21 09:24] LABS: Eosinophils % (manual) 5 (0-7); Lymphocytes % (manual) 84 (10.0-50.0); Monocytes % (manual) 4 (0-12)
[2024-05-21 09:25] LABS: Platelet Estimate Decreased
[2024-05-21] MEDS: POTASSIUM EFFERVESENT TAB 25 MEQ GT ONE (09:40)
[2024-05-21] MEDS: CEFEPIME 1GM/ 50ML 50 ML IV SCH (14:00)
[2024-05-22 04:57] VITALS: BP 117/69; PULSE 98; RESP 20; TEMP 97.3; O2SAT 97
[2024-05-22 08:00] VITALS: PULSE 94; RESP 18
[2024-05-22 09:13] VITALS: BP 131/66; PULSE 100; RESP 18; TEMP 97.9; O2SAT 99
--- NOTE | 2024-05-22 10:24 | DVHPNRES ---
Progress Note Date Seen: May 22, 2024 Resident Creating Document: ANALY ESTRADA RESIDENT Has the PT tested + for MRSA If YES, has PT been informed?: No Medical Necessity Reason Pt with a Central, PICC or Fol: No Subjective Review of Systems 73-year-old male with a past medical history of hypertension, hyperlipidemia, inclusion body myositis, and a recent diagnosis of Clostridioides difficile infection, presenting with generalized weakness. He resides in a snf and has been noted to be lethargic, not eating well, and experiencing fatigue with minimal exertion. Patient also stated few episodes of diarrhea He was on mycophenolate (for myositis) and colchicine, both of which have now been discontinued due to neutropenia. His clinical course has been complicated by worsening weakness, an elevated CRP, and the initiation of broad-spectrum antibiotics (ceftriaxone, metronidazole, vancomycin) due to concern for possible infection. Objective vital signs Vital Sign Date Time Temp Pulse Resp B/P (MAP) Pulse Ox O2 Delivery O2 Flow Rate FiO2 05/22/24 09:13 97.9 100 18 131/66 (87) 99 97.9 05/21/24 20:00 Nasal Cannula* 1 24 Total Intake and Output 05/21/24 05/21/24 05/22/24 15:00 23:00 07:00 Intake Total 50 ml 850 ml 1680 ml Balance 50 ml 850 ml 1680 ml medications Current Medications Medications Dose Ordered Sig/Mia Route Start Time Stop Time Status Last Admin Dose Admin Sodium Chloride 1,000 ml @ 60 mls/hr [id number] IV 05/16/24 09:00 05/22/24 01:24 60 MLS/HR Acetaminophen/ Hydrocodone Bitart 1 tab Q4HP PRN PO 05/16/24 09:00 05/22/24 01:24 1 TAB Ondansetron HCl 4 mg Q4HP PRN IV 05/16/24 09:00 05/16/24 16:05 4 MG Acetaminophen 650 mg Q6HP PRN PO 05/16/24 09:00 Losartan Potassium 50 mg BIDP PRN PO 05/16/24 15:00 Pantoprazole Sodium 40 mg DAILY PO 05/17/24 10:00 05/21/24 09:38 40 MG Patient Own Medication 1 tab BID PRN PO 05/16/24 16:45 Hold Metronidazole 100 ml @ 100 mls/hr Q8HR IV 05/17/24 07:30 05/22/24 06:44 100 MLS/HR Saccharomyces Boulardii 250 mg DAILY PO 05/18/24 10:00 05/21/24 09:38 250 MG Cholestyramine Resin 4 gm DAILY@11 GT 05/18/24 11:00 05/21/24 12:33 4 GM Loperamide HCl 2 mg PRN PRN PO 05/17/24 15:15 Doxycycline Hyclate 100 ml @ 50 mls/hr Q12H IV 05/17/24 16:00 05/22/24 05:12 50 MLS/HR Melatonin 5 mg HS PO 05/19/24 22:00 05/21/24 22:06 5 MG Cefepime HCl 50 ml @ 12.5 mls/hr Q8HR IV 05/21/24 14:00 05/22/24 00:14 12.5 MLS/HR Examination General: Alert, oriented x3, Respiratory: clear lungs Cardiovascular: No murmurs, regular rhythm GI: Non-distended, no tenderness Neurologic: No focal deficits Skin multiple skin excoriations laboratory and microbiology Test 05/22/24 10:02 Range/Units Serum Glucose Pending Microbiology Date/Time Source Procedure Growth Status 05/18/24 05:50 Voided Urine Urine Culture - Final Complete 05/18/24 05:39 Nose MRSA Screen - Final Complete 05/17/24 08:05 Blood Blood Culture - Final NO GROWTH AFTER 5 DAYS OF INCUBATION. Complete 05/16/24 17:52 Stool Clostridium difficile Toxin Assay - Final Complete Problem List/Assessment/Plan Problem List/Assessment/Plan #Possible drug induced neutropenia #Possible drug induced anemia #Sepsis? #C difficile infection recently #VALERIANO possible ATN improving #Inclusion bodies myositis #Hypertension #Hypokalemia #Thrombocytopenia Diet: mechanical soft IV fluids: 1 lt given today keep 60 cc/h doxycycline + cefepime + metronidazole IV Neupogen WBC are trending down STOP mycophenolate and colchicine due to neutropenia Protonix IV CK normal , ESR high , haptoglobin normal , reticulocytes low, stools studies pending , urine studies: Fena elevated possible ATN , peripheral smear, blood culture prelim neg , Clostridium difficile toxin neg wound culture: Moderate growth: Gram Positive Rods resembling Diphtheroids GI on board Hematology consult: resume filgastrim wbc trending down today, bone marrow biospy K PO Temazepam PO PT Case discussed with Dr Kincaid Plan discussed with: Patient, Other (rn) My Orders My Orders Orders - ANALY ESTRADA RESIDENT Procedure Category Date Status Time Cefepime 1gm/ 50ml PHA 05/21/24 In Process (Maxipime 1gm/50ml) 14:00 Complete Blood Count LAB 05/22/24 In Process 08:15 Comprehensive LAB 05/22/24 In Process Metabolic Panel 08:15 Dietary Evaluation Review Recommendations by RD: Increase Calorie Intake, Protein Supplementation Comments: 1) Cardiac Msoft diet 2) Ensure Enlive 8fl oz BID 3) VitC 500mg BID, zinc sulfate 220mg 1 tab daily x 10 days, MVI 1 tab daily 4) Continue current plan of care Expected Outcomes/Goals: Pt will meet >75% estimated needs Fu 5-7 days Food and Nutrition Intake (Sev: <50% est energy req 5days Interpretation of weight loss: >5% in 1 month Protein Calorie Malnutrition: Severe Is there a minimum of two crit: Yes Date of Service: May 22, 2024 Billing Provider: MICHEL KINCAID MD Common Visit Codes: [id number] INP/OBS CARE(HIGH) ANALY ESTRADA RESIDENT May 22, 2024 10:24 MICHEL KINCAID MD May 22, 2024 13:57
[2024-05-22 10:26] LABS: Hematocrit 26.7 % (41.0-53.0); Hemoglobin 8.7 g/dL (13.5-17.5); Mean Corpuscular Hemoglobin 29.8 pg (28.0-32.0); Mean Corpuscular Hgb Conc. 32.6 g/dL (32.0-36.0); Mean Corpuscular Volume 91.4 fL (80.0-100.0); Platelet Count (auto) 85 10^3/uL (140-450); Red Blood Cells 2.92 10^6/uL (4.5-5.90); Red Cell Distribution Width 17.1 % (11.8-14.3)
[2024-05-22 10:34] LABS: White Blood Cell 1.3 10^3/uL (4.4-10.8)
[2024-05-22 10:35] LABS: Basophils % (manual) 0 (0.0-2.0); Blast Cells 0; Metamyelocytes % 0; Myelocytes % 0; Promyelocytes % 0
[2024-05-22 10:43] LABS: Alanine Aminotransferase 11 U/L (7-40); Alkaline Phosphatase 63 U/L (46-116); Anion Gap 7 (5-15); Aspartate Aminotransferase 13 U/L (13-40); BUN/Creatinine Ratio 22.6 (10.0-20.0); Bilirubin, Total 0.5 mg/dL (0.2-1.0); Blood Urea Nitrogen 19 mg/dL (9-23); Carbon Dioxide 21 mmol/L (20-31); Glucose 99 mg/dL (74-106); Potassium 3.9 mmol/L (3.5-5.1); Sodium 137 mmol/L (136-145)
[2024-05-22 10:48] LABS: Albumin 2.8 g/dL (3.2-4.8); Calcium 8.1 mg/dL (8.7-10.4); Chloride 109 mmol/L (98-107); Total Protein 4.9 g/dL (5.7-8.2)
[2024-05-22 11:02] LABS: Band Neutrophils % (manual) 4; Eosinophils % (manual) 4 (0-7); Lymphocytes % (manual) 78 (10.0-50.0); Monocytes % (manual) 6 (0-12); Platelet Estimate Decreased; Reactive Lymphocytes 4
--- NOTE | 2024-05-22 11:12 | DVHPN2 ---
Progress Note - Dictate Date Seen: May 22, 2024 Has the PT tested + for MRSA If YES, has PT been informed?: Yes Medical Necessity Reason Pt with a Central, PICC or Fol: No Subjective No new complaints voiced. The patient still has some soreness and swelling of the lower extremities. No bleeding or bruising. vital signs Vital Sign Date Time Temp Pulse Resp B/P (MAP) Pulse Ox O2 Delivery O2 Flow Rate FiO2 05/22/24 09:13 97.9 100 18 131/66 (87) 99 97.9 05/21/24 20:00 Nasal Cannula* 1 24 Total Intake and Output 05/21/24 05/21/24 05/22/24 15:00 23:00 07:00 Intake Total 50 ml 850 ml 1680 ml Balance 50 ml 850 ml 1680 ml medications Current Medications Medications Dose Ordered Sig/Mia Route Start Time Stop Time Status Last Admin Dose Admin Sodium Chloride 1,000 ml @ 60 mls/hr [id number] IV 05/16/24 09:00 05/22/24 01:24 60 MLS/HR Acetaminophen/ Hydrocodone Bitart 1 tab Q4HP PRN PO 05/16/24 09:00 05/22/24 01:24 1 TAB Ondansetron HCl 4 mg Q4HP PRN IV 05/16/24 09:00 05/16/24 16:05 4 MG Acetaminophen 650 mg Q6HP PRN PO 05/16/24 09:00 Losartan Potassium 50 mg BIDP PRN PO 05/16/24 15:00 Pantoprazole Sodium 40 mg DAILY PO 05/17/24 10:00 05/21/24 09:38 40 MG Patient Own Medication 1 tab BID PRN PO 05/16/24 16:45 Hold Metronidazole 100 ml @ 100 mls/hr Q8HR IV 05/17/24 07:30 05/22/24 06:44 100 MLS/HR Saccharomyces Boulardii 250 mg DAILY PO 05/18/24 10:00 05/21/24 09:38 250 MG Cholestyramine Resin 4 gm DAILY@11 GT 05/18/24 11:00 05/21/24 12:33 4 GM Loperamide HCl 2 mg PRN PRN PO 05/17/24 15:15 Doxycycline Hyclate 100 ml @ 50 mls/hr Q12H IV 05/17/24 16:00 05/22/24 05:12 50 MLS/HR Melatonin 5 mg HS PO 05/19/24 22:00 05/21/24 22:06 5 MG Cefepime HCl 50 ml @ 12.5 mls/hr Q8HR IV 05/21/24 14:00 05/22/24 00:14 12.5 MLS/HR Tbo-Filgrastim 300 mcg DAILY SC 05/22/24 10:00 05/25/24 09:59 UNV objective GENERAL: The patient is a moderately built and nourished ,in no distress, alert and oriented. HEAD AND NECK: Unremarkable. No neck nodes or masses. Conjunctivae: Unremarkable for any mucosal hemorrhage or inflammation. Thyroid is nonpalpable. Throat is unremarkable. SPINE: No deformities or tenderness. CHEST: Chest wall, no tenderness. LUNGS: Clear. CARDIOVASCULAR: Regular sinus rhythm. No murmurs or gallops. ABDOMEN: No organomegaly, tenderness or ascites. Bowel sounds present. EXTREMITIES: No clubbing, edema or cyanosis. Peripheral pulses palpable. No calf tenderness. Has mild swelling of the lower extremities and some scattered sores LYMPHATICS: No significant lymphadenopathy. NEUROLOGIC: No focal neurological deficits. SKIN: Unremarkable for any petechiae, purpura, or ecchymosis. Psych: No abnormalities laboratory and microbiology Laboratory Tests 05/22/24 10:02 Test 05/22/24 10:02 Range/Units Serum Glucose 99 74-106 mg/dL Assessment/Plan 1. Pancytopenia which could be secondary to myositis and mycophenolate and history of having taken methotrexate. May rule out bone marrow pathology. Lack of B12 hepatitis 05/22/2024: White count 1.3 hemoglobin 8.7 [place] [id number] confirmed on the blood smear Retic count 0.2, haptoglobin 266. Total protein 4.9 albumin 2.8, B12 637, LDH 113 CT of the abdomen pelvis showed no abdominal or pelvic findings 2. Recent C. difficile with diarrhea 3. Weight loss Plan: We will continue supportive care with Granix We will do a bone marrow evaluation to evaluate for persistent pancytopenia. the procedure discussed with the patient and he agrees Dietary Evaluation Review Recommendations by RD: Increase Calorie Intake, Protein Supplementation Comments: 1) Cardiac Msoft diet 2) Ensure Enlive 8fl oz BID 3) VitC 500mg BID, zinc sulfate 220mg 1 tab daily x 10 days, MVI 1 tab daily 4) Continue current plan of care Expected Outcomes/Goals: Pt will meet >75% estimated needs Fu 5-7 days Food and Nutrition Intake (Sev: <50% est energy req 5days Interpretation of weight loss: >5% in 1 month Protein Calorie Malnutrition: Severe Is there a minimum of two crit: Yes Plan discussed with: Patient PAT MARTÍNEZ MD May 22, 2024 11:12
[2024-05-22] MEDS: FILGRASTIM (TBO) 300 MCG/0.5 ML SYRG SC SCH (11:30)
[2024-05-22 11:55] VITALS: BP 129/71; PULSE 94; RESP 16; TEMP 97.5; O2SAT 96
[2024-05-22 16:45] VITALS: BP 120/67; PULSE 98; RESP 16; TEMP 97.5; O2SAT 98
[2024-05-22 21:00] VITALS: BP 112/58; PULSE 105; RESP 18; TEMP 98; O2SAT 98
[2024-05-23] VITALS (7 sets, daily range): BP systolic 113–126; BP diastolic 59–78; PULSE 102–117; RESP 18–20; TEMP 97.6–98.2; O2SAT 94–99
[2024-05-23 06:14] LABS: Hematocrit 26.5 % (41.0-53.0); Hemoglobin 8.8 g/dL (13.5-17.5); Mean Corpuscular Hemoglobin 30.2 pg (28.0-32.0); Mean Corpuscular Hgb Conc. 33.3 g/dL (32.0-36.0); Mean Corpuscular Volume 90.7 fL (80.0-100.0); Platelet Count (auto) 116 10^3/uL (140-450); Red Blood Cells 2.93 10^6/uL (4.5-5.90); Red Cell Distribution Width 16.9 % (11.8-14.3); White Blood Cell 2.4 10^3/uL (4.4-10.8)
[2024-05-23 06:34] LABS: Band Neutrophils % (manual) 0; Basophils % (manual) 0 (0.0-2.0); Myelocytes % 0; Promyelocytes % 0
[2024-05-23 06:37] LABS: Alanine Aminotransferase 12 U/L (7-40); Alkaline Phosphatase 69 U/L (46-116); Anion Gap 8 (5-15); BUN/Creatinine Ratio 19.3 (10.0-20.0); Blood Urea Nitrogen 17 mg/dL (9-23); Carbon Dioxide 21 mmol/L (20-31); Glucose 88 mg/dL (74-106); Potassium 3.9 mmol/L (3.5-5.1); Sodium 137 mmol/L (136-145)
[2024-05-23 06:38] LABS: Albumin 2.9 g/dL (3.2-4.8); Aspartate Aminotransferase 15 U/L (13-40); Bilirubin, Total 0.5 mg/dL (0.2-1.0); Calcium 8.5 mg/dL (8.7-10.4); Chloride 108 mmol/L (98-107); Total Protein 5.1 g/dL (5.7-8.2)
[2024-05-23] MEDS: LIDOCAINE 2%HCL (LOCAL ANESTH.) INJ 10ml MDV ONE (07:16)
[2024-05-23 08:08] LABS: INR 1.34 (0.9-1.15); Partial Thromboplastin Time 31.2 SEC (24.5-34.5); Prothrombin Time 13.8 sec (9.3-11.8)
[2024-05-23] MEDS: MIDAZOLAM HCL 2MG/2ML 2ml VIAL (1mg/ml) IV ONE (08:15)
[2024-05-23] MEDS: fentaNYL CITRATE 100 MCG/2 ML VL IV ONE (08:15)
[2024-05-23 08:32] LABS: Blast Cells 6; Eosinophils % (manual) 2 (0-7); Lymphocytes % (manual) 52 (10.0-50.0); Metamyelocytes % 3; Monocytes % (manual) 11 (0-12); Reactive Lymphocytes 2
[2024-05-23 08:33] LABS: Platelet Estimate Decreased
--- NOTE | 2024-05-23 09:13 | DVH ---
CT PELVIS WO CONTRAST, HISTORY: BONE MARROW BX COMPARISON: None PROCEDURE: Informed consent and time-out was performed before the procedure. Conscious sedation was p erformed by the interventional radiology nurse. The left posterior pelvic bone was marked, sterilized , draped, and locally anesthetized using approximately 8 ml of 1% lidocaine. Axial CT images were use d for localization. A 11 gauge GainSpan Bone Biopsy kit was used to take 11 mL aspirate and 1 core. The biopsy needle was then removed. No immediate complications noted. FINDINGS: Axial CT images demonstrates biopsy needle within the left posterior pelvic bone. IMPRESSION: Successful CT-guided bone marrow aspiration and biopsy of the left posterior pelvic bone.
--- NOTE | 2024-05-23 09:13 | DVH ---
CT PELVIS WO CONTRAST, HISTORY: BONE MARROW BX COMPARISON: None PROCEDURE: Informed consent and time-out was performed before the procedure. Conscious sedation was p erformed by the interventional radiology nurse. The left posterior pelvic bone was marked, sterilized , draped, and locally anesthetized using approximately 8 ml of 1% lidocaine. Axial CT images were use d for localization. A 11 gauge Bo[employer]ang Bone Biopsy kit was used to take 11 mL aspirate and 1 core. The biopsy needle was then removed. No immediate complications noted. FINDINGS: Axial CT images demonstrates biopsy needle within the left posterior pelvic bone. IMPRESSION: Successful CT-guided bone marrow aspiration and biopsy of the left posterior pelvic bone.
[2024-05-23 09:21] LABS: Hepatitis B Core Total AB Negative (Negative)
--- NOTE | 2024-05-23 10:18 | DVHPN2 ---
Progress Note Date Seen: May 23, 2024 Resident Creating Document: BEATA PALOMINO RESIDENT Has the PT tested + for MRSA If YES, has PT been informed?: Yes Medical Necessity Reason Pt with a Central, PICC or Fol: No Subjective Review of Systems 73-year-old male presented to ER with complains of generalized weakness and hypotension Patient is seen in ER bed 10. History by patient and family at bedside Patient recently diagnosed with C diff, one-week ago, [facility]. Patient admits to frequency of bowel movements improving at this time No melena or red blood in stool Patient also hospitalized two months ago with sepsis and COVID Patient has weight loss of 20 lb in the past two weeks due to poor appetite. Patient also complains of nausea and vomiting when he tries to eat food. No abdominal pain SP colonoscopy four years ago Gastro group polyps removed. He was on mycophenolate (for myositis) and colchicine, both of which have now been discontinued due to neutropenia. Today WBC is 2.4 Objective vital signs Vital Sign Date Time Temp Pulse Resp B/P (MAP) Pulse Ox O2 Delivery O2 Flow Rate FiO2 05/23/24 05:00 98.1 105 18 122/71 (88) 97 98.1 05/22/24 20:00 Nasal Cannula* 1 24 Total Intake and Output 05/22/24 05/22/24 05/23/24 15:00 23:00 07:00 Intake Total 200 ml 650 ml 700 ml Output Total 600 ml Balance 200 ml 50 ml 700 ml medications Current Medications Medications Dose Ordered Sig/Mia Route Start Time Stop Time Status Last Admin Dose Admin Sodium Chloride 1,000 ml @ 60 mls/hr [id number] IV 05/16/24 09:00 05/22/24 15:21 60 MLS/HR Acetaminophen/ Hydrocodone Bitart 1 tab Q4HP PRN PO 05/16/24 09:00 05/22/24 17:44 1 TAB Ondansetron HCl 4 mg Q4HP PRN IV 05/16/24 09:00 05/16/24 16:05 4 MG Acetaminophen 650 mg Q6HP PRN PO 05/16/24 09:00 Losartan Potassium 50 mg BIDP PRN PO 05/16/24 15:00 Pantoprazole Sodium 40 mg DAILY PO 05/17/24 10:00 05/22/24 11:31 40 MG Patient Own Medication 1 tab BID PRN PO 05/16/24 16:45 Hold Metronidazole 100 ml @ 100 mls/hr Q8HR IV 05/17/24 07:30 05/23/24 05:47 100 MLS/HR Saccharomyces Boulardii 250 mg DAILY PO 05/18/24 10:00 05/22/24 10:00 250 MG Cholestyramine Resin 4 gm DAILY@11 GT 05/18/24 11:00 05/21/24 12:33 4 GM Loperamide HCl 2 mg PRN PRN PO 05/17/24 15:15 Doxycycline Hyclate 100 ml @ 50 mls/hr Q12H IV 05/17/24 16:00 05/23/24 04:27 50 MLS/HR Melatonin 5 mg HS PO 05/19/24 22:00 05/22/24 21:05 5 MG Cefepime HCl 50 ml @ 12.5 mls/hr Q8HR IV 05/21/24 14:00 05/23/24 06:54 12.5 MLS/HR Tbo-Filgrastim 300 mcg DAILY SC 05/22/24 10:00 05/25/24 09:59 05/22/24 11:30 300 MCG Examination General: Alert, oriented x3, moderate distress Respiratory: No increased work of breathing Cardiovascular: No murmurs, regular rhythm GI: Non-distended, no tenderness Neuro: No focal deficits Skin multiple skin excoriations. laboratory and microbiology Laboratory Tests 05/23/24 05:27 Test 05/23/24 05:27 Range/Units Serum Glucose 88 74-106 mg/dL Microbiology Date/Time Source Procedure Growth Status 05/18/24 05:50 Voided Urine Urine Culture - Final Complete 05/18/24 05:39 Nose MRSA Screen - Final Complete 05/17/24 08:05 Blood Blood Culture - Final NO GROWTH AFTER 5 DAYS OF INCUBATION. Complete 05/16/24 17:52 Stool Clostridium difficile Toxin Assay - Final Complete Problem List/Assessment/Plan Problem List/Assessment/Plan # History C diff colitis # Nausea and vomiting # Weight loss # Pancytopenia due to mycophenolate # diarrhea Plan: - Stool for C diff - negative - shiga toxin negative - HIV negative - BON direct - result pending -vitamin B12 level normal - hepatitis panel pending - Continue broad-spectrum antibiotics - Discontinued mycophenolate -continue cholestyramine 4 g daily - Florastor 250 mg p.o. daily - Loperamide 2 mg p.o. p.r.n. after each bowel movement. -colonoscopy four years ago Gastro group polyps removed - advised patient to repeat colonoscopy as outpatient - Heme-Onc consult appreciated for pancytopenia. - we will monitor lab - supportive care with Granix -Today WBC is 2.4 - bone marrow evaluation to evaluate for persistent pancytopenia, as per Heme- Onc. Thank you so much for the opportunity to consult on your patient. GI team will follow the patient. In case of any questions or concerns please feel free to reach out. Case discussed with Dr. Brendan Valles. The patient and caregiver team agreed to the plan. Plan discussed with: Patient Dietary Evaluation Review Recommendations by RD: Increase Calorie Intake, Protein Supplementation Comments: 1) Cardiac Msoft diet 2) Ensure Enlive 8fl oz BID 3) VitC 500mg BID, zinc sulfate 220mg 1 tab daily x 10 days, MVI 1 tab daily 4) Continue current plan of care Expected Outcomes/Goals: Pt will meet >75% estimated needs Fu 5-7 days Food and Nutrition Intake (Sev: <50% est energy req 5days Interpretation of weight loss: >5% in 1 month Protein Calorie Malnutrition: Severe Is there a minimum of two crit: Yes BEATA PALOMINO RESIDENT May 23, 2024 10:18
[2024-05-23 12:28] LABS: Hepatitis A Total Antibody Negative (Negative)
[2024-05-23 12:29] LABS: Hepatitis B Surface Antibody Negative (Negative); Hepatitis B Surface Antigen Negative (Negative); Hepatitis C Antibody Negative (Negative)
[2024-05-23] MEDS ORDERED: ACET1CAP14 PO (13:12)
--- NOTE | 2024-05-23 17:21 | DVHPNRES ---
Progress Note Date Seen: May 23, 2024 Resident Creating Document: ANALY ESTRADA RESIDENT Has the PT tested + for MRSA If YES, has PT been informed?: Yes Medical Necessity Reason Pt with a Central, PICC or Fol: No Subjective Review of Systems 73-year-old male with a past medical history of hypertension, hyperlipidemia, inclusion body myositis, and a recent diagnosis of Clostridioides difficile infection, presenting with generalized weakness. He resides in a assisted and has been noted to be lethargic, not eating well, and experiencing fatigue with minimal exertion. Patient also stated few episodes of diarrhea He was on mycophenolate (for myositis) and colchicine, both of which have now been discontinued due to neutropenia. His clinical course has been complicated by worsening weakness, an elevated CRP, and the initiation of broad-spectrum antibiotics (ceftriaxone, metronidazole, vancomycin) due to concern for possible infection. Objective vital signs Vital Sign Date Time Temp Pulse Resp B/P (MAP) Pulse Ox O2 Delivery O2 Flow Rate FiO2 05/23/24 16:54 98.1 107 20 121/69 (86) 98 98.1 05/23/24 08:15 Nasal Cannula* 1 24 Total Intake and Output 05/22/24 05/22/24 05/23/24 15:00 23:00 07:00 Intake Total 200 ml 650 ml 700 ml Output Total 600 ml Balance 200 ml 50 ml 700 ml medications Current Medications Medications Dose Ordered Sig/Mia Route Start Time Stop Time Status Last Admin Dose Admin Sodium Chloride 1,000 ml @ 60 mls/hr [id number] IV 05/16/24 09:00 05/22/24 15:21 60 MLS/HR Acetaminophen/ Hydrocodone Bitart 1 tab Q4HP PRN PO 05/16/24 09:00 05/22/24 17:44 1 TAB Ondansetron HCl 4 mg Q4HP PRN IV 05/16/24 09:00 05/16/24 16:05 4 MG Acetaminophen 650 mg Q6HP PRN PO 05/16/24 09:00 Losartan Potassium 50 mg BIDP PRN PO 05/16/24 15:00 Pantoprazole Sodium 40 mg DAILY PO 05/17/24 10:00 05/23/24 10:49 40 MG Patient Own Medication 1 tab BID PRN PO 05/16/24 16:45 Hold Metronidazole 100 ml @ 100 mls/hr Q8HR IV 05/17/24 07:30 05/23/24 15:38 100 MLS/HR Saccharomyces Boulardii 250 mg DAILY PO 05/18/24 10:00 05/23/24 10:50 250 MG Cholestyramine Resin 4 gm DAILY@11 GT 05/18/24 11:00 05/23/24 14:25 4 GM Loperamide HCl 2 mg PRN PRN PO 05/17/24 15:15 Doxycycline Hyclate 100 ml @ 50 mls/hr Q12H IV 05/17/24 16:00 05/23/24 04:27 50 MLS/HR Melatonin 5 mg HS PO 05/19/24 22:00 05/22/24 21:05 5 MG Cefepime HCl 50 ml @ 12.5 mls/hr Q8HR IV 05/21/24 14:00 05/23/24 06:54 12.5 MLS/HR Tbo-Filgrastim 300 mcg DAILY SC 05/22/24 10:00 05/25/24 09:59 05/23/24 14:29 300 MCG Examination General: Alert, oriented x3, Respiratory: clear lungs Cardiovascular: No murmurs, regular rhythm GI: Non-distended, no tenderness Neurologic: No focal deficits Skin multiple skin excoriations laboratory and microbiology Laboratory Tests 05/23/24 05:27 Test 05/23/24 05:27 Range/Units Serum Glucose 88 74-106 mg/dL Microbiology Date/Time Source Procedure Growth Status 05/18/24 05:50 Voided Urine Urine Culture - Final Complete 05/18/24 05:39 Nose MRSA Screen - Final Complete 05/17/24 08:05 Blood Blood Culture - Final NO GROWTH AFTER 5 DAYS OF INCUBATION. Complete 05/16/24 17:52 Stool Clostridium difficile Toxin Assay - Final Complete Problem List/Assessment/Plan Problem List/Assessment/Plan #Possible drug induced neutropenia #Possible drug induced anemia #Sepsis? #C difficile infection recently #VALERIANO possible ATN improving #Inclusion bodies myositis #Hypertension #Hypokalemia #Thrombocytopenia Diet: mechanical soft IV fluids: 1 lt given today keep 60 cc/h doxycycline + cefepime + metronidazole IV Neupogen WBC are trending high STOP mycophenolate and colchicine due to neutropenia Protonix IV CK normal , ESR high , haptoglobin normal , reticulocytes low, stools studies pending , urine studies: Fena elevated possible ATN , peripheral smear, blood culture prelim neg , Clostridium difficile toxin neg wound culture: Moderate growth: Gram Positive Rods resembling Diphtheroids GI on board Hematology consult: bone marrow biopsy today, ok to dc, fu with Dr Vazquez as outpatient PT evaluation for home PT and wound care K PO Temazepam PO PT Case discussed with Dr Kincaid Plan discussed with: Patient, Other (rn) My Orders My Orders Orders - ANALY ESTRADA RESIDENT Procedure Category Date Status Time Ct Guidance For CT 05/23/24 Resulted Needle Placeme 08:[address] 05/23/24 Resulted 08:15 Pt Request For Service PT 05/23/24 Logged 16:14 * Ccnp CONS 05/23/24 Transmitted Consult Discharge DISCHARGE 05/24/24 Transmitted 17:00 Dietary Evaluation Review Recommendations by RD: Increase Calorie Intake, Protein Supplementation Comments: 1) Cardiac Msoft diet 2) Ensure Enlive 8fl oz BID 3) VitC 500mg BID, zinc sulfate 220mg 1 tab daily x 10 days, MVI 1 tab daily 4) Continue current plan of care Expected Outcomes/Goals: Pt will meet >75% estimated needs Fu 5-7 days Food and Nutrition Intake (Sev: <50% est energy req 5days Interpretation of weight loss: >5% in 1 month Protein Calorie Malnutrition: Severe Is there a minimum of two crit: Yes ANALY ESTRADA RESIDENT May 23, 2024 17:21 MICHEL KINCAID MD May 23, 2024 21:36
[2024-05-23] MEDS: DOXYCYCLINE 100MG/100ML 100 ML IV SCH (21:18)
[2024-05-23] MEDS: CEFEPIME 1GM/ 50ML 50 ML IV SCH (21:19)
[2024-05-24 05:00] VITALS: BP 111/65; PULSE 113; RESP 19; TEMP 98.2; O2SAT 96
[2024-05-24 05:23] LABS: Hematocrit 27.1 % (41.0-53.0); Mean Corpuscular Hgb Conc. 33.1 g/dL (32.0-36.0); Mean Corpuscular Volume 90.6 fL (80.0-100.0); Platelet Count (auto) 164 10^3/uL (140-450); Red Blood Cells 2.99 10^6/uL (4.5-5.90); Red Cell Distribution Width 17.2 % (11.8-14.3); White Blood Cell 9.6 10^3/uL (4.4-10.8)
[2024-05-24 05:33] LABS: Basophils % (manual) 0 (0.0-2.0); Promyelocytes % 0; Reactive Lymphocytes 0
[2024-05-24 05:37] LABS: Alanine Aminotransferase 15 U/L (7-40); Alkaline Phosphatase 74 U/L (46-116); Carbon Dioxide 22 mmol/L (20-31)
[2024-05-24 05:38] LABS: Anion Gap 8 (5-15); Aspartate Aminotransferase 19 U/L (13-40); BUN/Creatinine Ratio 18.8 (10.0-20.0); Bilirubin, Total 0.5 mg/dL (0.2-1.0); Blood Urea Nitrogen 15 mg/dL (9-23); Glucose 77 mg/dL (74-106); Sodium 138 mmol/L (136-145)
[2024-05-24 05:39] LABS: Albumin 2.7 g/dL (3.2-4.8); Calcium 8.4 mg/dL (8.7-10.4); Chloride 108 mmol/L (98-107); Potassium 3.3 mmol/L (3.5-5.1); Total Protein 4.7 g/dL (5.7-8.2)
[2024-05-24 06:42] LABS: Eosinophils % (manual) 3 (0-7); Myelocytes % 2
[2024-05-24 06:45] LABS: Band Neutrophils % (manual) 13; Blast Cells 5; Lymphocytes % (manual) 32 (10.0-50.0); Metamyelocytes % 5; Monocytes % (manual) 4 (0-12)
[2024-05-24 06:47] LABS: Platelet Estimate Adequate
[2024-05-24] MEDS: TEMAZEPAM 15 MG CAP PO ONE (07:28)
[2024-05-24 09:00] VITALS: BP 111/67; PULSE 108; RESP 20; TEMP 97.7; O2SAT 97
[2024-05-24] MEDS: POTASSIUM CHL 20 Meq TABLET PO SCH (10:55)
--- NOTE | 2024-05-24 12:46 | DVHDSRES ---
Discharge Summary Date of Admission Resident Creating Document: ANALY ESTRADA RESIDENT May 16, 2024 at 08:50 Date of Discharge: May 23, 2024 Admitting Diagnosis pancytopenia Labs/Diagnostic Data: Laboratory Results Test 05/24/24 04:59 05/23/24 05:27 05/21/24 07:17 05/20/24 05:12 White Blood Count 9.6 10^3/uL (4.4-10.8) Red Blood Count 2.99 10^6/uL (4.5-5.90) Hemoglobin 9.0 g/dL (13.5-17.5) Hematocrit 27.1 % (41.0-53.0) Mean Corpuscular Volume 90.6 fL (80.0-100.0) Mean Corpuscular Hemoglobin 30.0 pg (28.0-32.0) Mean Corpuscular Hemoglobin Concent 33.1 g/dL (32.0-36.0) Red Cell Distribution Width 17.2 % (11.8-14.3) Platelet Count 164 10^3/uL (140-450) Mean Platelet Volume 7.1 fL (6.9-10.8) Neutrophils (%) (Auto) % (37.0-80.0) Lymphocytes (%) (Auto) % (10.0-50.0) Monocytes (%) (Auto) % (0.0-12.0) Basophils (%) (Auto) % (0.0-2.0) Neutrophils # (Auto) 10 ^3/uL (1.6-8.6) Lymphocytes # (Auto) 10 ^3/uL (0.4-5.4) Monocytes # (Auto) 10 ^3/uL (0-1.3) Differential Total Cells Counted 100.0 (100) Neutrophils % (Manual) 36 (37.0-80.0) Band Neutrophils % (Manual) 13 Lymphocytes % (Manual) 32 (10.0-50.0) Monocytes % (Manual) 4 (0-12) Eosinophils % (Manual) 3 (0-7) Basophils % (Manual) 0 (0.0-2.0) Metamyelocytes % (manual) 5 Myelocytes % (Manual) 2 Promyelocytes % (Manual) 0 Blast Cells % (Manual) 5 Reactive Lymphocytes 0 Platelet Estimate Adequate Sodium Level 138 mmol/L (136-145) Potassium Level 3.3 mmol/L (3.5-5.1) Chloride Level 108 mmol/L (98-107) Carbon Dioxide Level 22 mmol/L (20-31) Anion Gap 8 (5-15) Blood Urea Nitrogen 15 mg/dL (9-23) Creatinine 0.80 mg/dL (0.700-1.30) Glomerular Filtration Rate Calc 93 mL/min (>90) BUN/Creatinine Ratio 18.8 (10.0-20.0) Serum Glucose 77 mg/dL (74-106) Calcium Level 8.4 mg/dL (8.7-10.4) Total Bilirubin 0.5 mg/dL (0.2-1.0) Aspartate Amino Transferase (AST) 19 U/L (13-40) Alanine Aminotransferase (ALT) 15 U/L (7-40) Alkaline Phosphatase 74 U/L (46-116) Total Protein 4.7 g/dL (5.7-8.2) Albumin 2.7 g/dL (3.2-4.8) Prothrombin Time 13.8 sec (9.3-11.8) Prothrombin Time INR 1.34 (0.9-1.15) Activated Partial Thromboplast Time 31.2 SEC (24.5-34.5) C-Reactive Protein High Sensitivity 1.19 mg/dL (<1.0) Vitamin B12 Level 637 pg/mL (211-911) Hepatitis A Antibody Total Negative (Negative) Hepatitis B Surface Antigen Negative (Negative) Hepatitis B Surface Antibody Negative (Negative) Hepatitis B Core Total Antibody Negative (Negative) Hepatitis C Antibody Negative (Negative) HIV (1&2) Antibody Negative (Negative) Test 05/19/24 05:13 05/17/24 10:38 05/17/24 09:25 05/17/24 06:36 Eosinophils (%) (Auto) 6.5 % (0.0-7.0) Eosinophils # (Auto) 0.1 10 ^3/uL (0-0.8) Basophils # (Auto) 0 10 ^3/uL (0-0.2) Nucleated Red Blood Cells 0.1 % Erythrocyte Sedimentation Rate 67 mm/hr (0-20) Reticulocyte Count (auto) 0.22 % (0.5-1.5) Haptoglobin 266 mg/dL (34-355) Urine Color Light-yellow (Yellow) Urine Clarity Clear (Clear) Urine pH 5.5 (5.0-9.0) Urine Specific [place] 1.017 (1.001-1.035) Urine Protein Negative (Negative) Urine Ketones Negative (Negative) Urine Blood Negative /uL (Negative) Urine Nitrite Negative (Negative) Urine Bilirubin Negative (Negative) Urine Urobilinogen Normal mg/dL (Negative) Urine Leukocyte Esterase Negative /uL (Negative) Urine RBC 1 /hpf (0 - 3) Urine Microscopic WBC < 1 /HPF (0-3) Urine Squamous Epithelial Cells Few /hpf (<5) Urine Bacteria None seen /hpf (None Seen) Urine Creatinine 32.08 mg/dL (30.0-125.0) Urine Sodium 125 mmol/L (40-220) Urine Glucose 4+ mg/dL (Normal) Urine Total Protein 17.8 mg/dL (1-14) Magnesium Level 2.1 mg/dL (1.6-2.6) Lactate Dehydrogenase 113 U/L (120-246) Creatine Kinase 46 U/L (46-171) B-Type Natriuretic Peptide 57.51 pg/mL (0-100) Test 05/15/24 22:26 Anisocytosis (manual) Slight Ovalocytes Few Lactic Acid Level 1.0 mmol/L (0.4-2.0) Lipase 68 U/L (12-53) Other Laboratory Tests 05/24/24 04:59 Brief Hx & Hospital Course: A 73-year-old male with a past medical history of hypertension, hyperlipidemia, inclusion body myositis, and recent Clostridioides difficile infection was admitted with generalized weakness, poor oral intake, and fatigue. He resides in a fpc and was noted to be lethargic, experiencing weight loss of 30 lbs over the past 4 months, and presenting with swelling of the lower extremities. His hospital course was complicated by pancytopenia, likely secondary to mycophenolate and colchicine use, requiring discontinuation of these medications due to neutropenia. He also had an acute kidney injury with possible acute tubular necrosis, which improved with supportive care. During admission, he was found to have elevated CRP and was started on broad- spectrum antibiotics (cefepime, metronidazole, doxycycline) due to concern for possible infection. Blood cultures remained negative. Hematology was consulted, and a bone marrow biopsy was done.C. difficile toxin was negative. His neutropenia improved with discontinuation of mycophenolate and colchicine, along with Neupogen support. His CK was normal, ESR was elevated, and reticulocyte count was low. During hospitalization, he continued to receive supportive care with IV fluids, mechanical soft diet, and electrolyte repletion. Given his stable condition, he was deemed safe for discharge with follow-up arranged with Dr. Vazquez as an outpatient for hematology evaluation. A PT evaluation was conducted for home physical therapy and wound care support. Case discussed with Dr Shore Consults/Reason for consult hematology due to pancytopenia GI due to diarrhea Operations or Procedures Exam: CT CT AB PEL WITH IV CON ONLY History: Nausea, vomiting, abdominal pain, diarrhea COMPARISON: None Technique: Multidetector spiral CT of the abdomen and pelvis was performed from lung bases to pubic symphysis. Intravenous contrast was administered during this examination. Portal venous imaging was obtained. Axial, coronal and sagittal multiplanar reformats were performed by the technologist on a separate workstation. Radiation Dose : 1. Abdomen/Pelvis: CTDIvol 14.62mGy, DLP 873.39 mGy*cm. CONTRAST: Type of contrast: Contrast injected: ml Contrast ingested: ml Findings: Lung Bases: No abnormality demonstrated. Liver: Liver is normal in size. No focal lesions. Normal hepatic vascular enhancement. Gallbladder and Biliary Tree: Unremarkable. Spleen: No abnormality demonstrated. Pancreas: No abnormality demonstrated. Adrenal Glands: No abnormality demonstrated. Kidneys: No abnormality demonstrated. No evidence of renal calculus or hydroureteronephrosis. Bladder: Unremarkable Bowel: Stomach appears grossly unremarkable. No abnormally dilated or thick- walled loops of large or small bowel noted. Nonspecific air and fluid is noted in the large and small bowel. Appendix is not visualized; however, no secondary findings of acute appendicitis identified. Ascites: Absent Lymphadenopathy: No evidence of lymphadenopathy. Abdominal Wall and Mesentery: Unremarkable. Vasculature: Mild calcified plaque in abdominal aorta and iliac arteries without aneurysmal dilatation. Stents noted in bilateral iliac veins extending into SVC. Pelvic Organs: Unremarkable. Musculoskeletal: No bony lesions are fracture. IMPRESSION: No acute abdominal or pelvic finding. Radiation optimization: All CT scans at this facility use at least one of these dose optimization techniques: automated exposure control mA and/or kV adjustment per patient size (includes targeted exams where dose is matched to clinical indication) or iterative reconstruction. CT PELVIS WO CONTRAST, HISTORY: BONE MARROW BX COMPARISON: None PROCEDURE: Informed consent and time-out was performed before the procedure. Conscious sedation was performed by the interventional radiology nurse. The left posterior pelvic bone was marked, sterilized, draped, and locally anesthetized using approximately 8 ml of 1% lidocaine. Axial CT images were used for localization. A 11 gauge [place] Bone Biopsy kit was used to take 11 mL aspirate and 1 core. The biopsy needle was then removed. No immediate complications noted. FINDINGS: Axial CT images demonstrates biopsy needle within the left posterior pelvic bone. IMPRESSION: Successful CT-guided bone marrow aspiration and biopsy of the left posterior pelvic bone. Condition at Discharge: Stable Final Diagnosis/Problems List #Pancytopenia #Possible drug induced neutropenia resolved #Possible drug induced anemia #Sepsis? #C difficile infection recently #VALERIANO possible ATN improving #Inclusion bodies myositis #Hypertension #Hypokalemia #Thrombocytopenia Discharge Disposition: Home Discharge Instruct/Medications Diet: Cardiac 2g Na,low cholest Activity: Light activity Follow Up/Referral: f/u with dr Vazquez in 1 week for bone marrow biopsy results Medications: see prescription, please hold on in mycophenolate Discharge Statement: "Patient was advised to return to the ER or call 911 if any headaches, dizziness, shortness of breath, chest pain, abdominal pain, bleeding, fevers, or worsening of medical condition. Patient was counseled about treatment plan, medications, possible side effects, patientverbalized understanding. All questions were answered to the best of my ability. This discharge took greater then 30 minutes in planning, reviewing documentation, counseling the patient, and discussing with other team members." ASSESSMENT ASSESSMENT Assessment neutropenia due to mycophenolate resolved ANALY ESTRADA RESIDENT May 24, 2024 12:46
[2024-05-24 13:00] VITALS: BP 117/71; PULSE 98; RESP 20; TEMP 97.6; O2SAT 98
--- NOTE | 2024-05-24 14:56 | DVHPN2 ---
Progress Note Date Seen: May 24, 2024 Resident Creating Document: BEATA PALOMINO RESIDENT Has the PT tested + for MRSA If YES, has PT been informed?: Yes Medical Necessity Reason Pt with a Central, PICC or Fol: No Subjective Review of Systems 73-year-old male presented to ER with complains of generalized weakness and hypotension Patient is seen in ER bed 10. History by patient and family at bedside Patient recently diagnosed with C diff, one-week ago, treated with antibiotics at intermediate facility. Patient admits to frequency of bowel movements improving at this time No melena or red blood in stool Patient also hospitalized two months ago with sepsis and COVID Patient has weight loss of 20 lb in the past two weeks due to poor appetite. Patient also complains of nausea and vomiting when he tries to eat food. No abdominal pain SP colonoscopy four years ago [facility] group polyps removed. He was on mycophenolate (for myositis) and colchicine, both of which have now been discontinued due to neutropenia. Today WBC is 9.4 Objective vital signs Vital Sign Date Time Temp Pulse Resp B/P (MAP) Pulse Ox O2 Delivery O2 Flow Rate FiO2 05/24/24 09:00 97.7 108 20 111/67 (82) 97 97.7 05/24/24 08:00 Nasal Cannula* 1 24 Total Intake and Output 05/23/24 05/23/24 05/24/24 15:00 23:00 07:00 Intake Total 50 ml 1060 ml 490 ml Output Total 675 ml 1200 ml Balance 50 ml 385 ml -710 ml medications Current Medications Medications Dose Ordered Sig/Mia Route Start Time Stop Time Status Last Admin Dose Admin Sodium Chloride 1,000 ml @ 60 mls/hr [id number] IV 05/16/24 09:00 05/22/24 15:21 60 MLS/HR Acetaminophen/ Hydrocodone Bitart 1 tab Q4HP PRN PO 05/16/24 09:00 05/24/24 06:30 1 TAB Ondansetron HCl 4 mg Q4HP PRN IV 05/16/24 09:00 05/16/24 16:05 4 MG Acetaminophen 650 mg Q6HP PRN PO 05/16/24 09:00 Losartan Potassium 50 mg BIDP PRN PO 05/16/24 15:00 Pantoprazole Sodium 40 mg DAILY PO 05/17/24 10:00 05/24/24 10:55 40 MG Patient Own Medication 1 tab BID PRN PO 05/16/24 16:45 Hold Saccharomyces Boulardii 250 mg DAILY PO 05/18/24 10:00 05/24/24 10:54 250 MG Cholestyramine Resin 4 gm DAILY@11 GT 05/18/24 11:00 05/24/24 12:03 4 GM Loperamide HCl 2 mg PRN PRN PO 05/17/24 15:15 Melatonin 5 mg HS PO 05/19/24 22:00 05/23/24 21:17 5 MG Potassium Chloride 40 meq DAILY PO 05/24/24 10:00 05/24/24 10:55 40 MEQ Examination General: Alert, oriented x3, moderate distress Respiratory: No increased work of breathing Cardiovascular: No murmurs, regular rhythm GI: Non-distended, no tenderness Neuro: No focal deficits Skin multiple skin excoriations. laboratory and microbiology Laboratory Tests 05/24/24 04:59 Test 05/24/24 04:59 Range/Units Serum Glucose 77 74-106 mg/dL Microbiology Date/Time Source Procedure Growth Status 05/18/24 05:50 Voided Urine Urine Culture - Final Complete 05/18/24 05:39 Nose MRSA Screen - Final Complete 05/17/24 08:05 Blood Blood Culture - Final NO GROWTH AFTER 5 DAYS OF INCUBATION. Complete 05/16/24 17:52 Stool Clostridium difficile Toxin Assay - Final Complete Problem List/Assessment/Plan Problem List/Assessment/Plan # History C diff colitis # Nausea and vomiting # Weight loss # Pancytopenia due to mycophenolate # diarrhea Plan: - Stool for C diff - negative - shiga toxin negative - HIV negative - BON direct - result pending -vitamin B12 level normal - hepatitis panel pending - Continue broad-spectrum antibiotics - Discontinued mycophenolate -continue cholestyramine 4 g daily - Florastor 250 mg p.o. daily - Loperamide 2 mg p.o. p.r.n. after each bowel movement. -colonoscopy four years ago Gastro group polyps removed - advised patient to repeat colonoscopy as outpatient - Heme-Onc consult appreciated for pancytopenia. - we will monitor lab - supportive care with Granix -Today WBC is 9.4 - bone marrow evaluation to evaluate for persistent pancytopenia, as per Heme- Onc. - outpatient GI follow up for colonoscopy, scheduled next available appointment Thank you so much for the opportunity to consult on your patient. GI team will follow the patient. In case of any questions or concerns please feel free to reach out. Case discussed with Dr. Brendan Valles. The patient and caregiver team agreed to the plan. Plan discussed with: Patient Dietary Evaluation Review Recommendations by RD: Increase Calorie Intake, Protein Supplementation Comments: 1) Cardiac Msoft diet 2) Ensure Enlive 8fl oz BID 3) VitC 500mg BID, zinc sulfate 220mg 1 tab daily x 10 days, MVI 1 tab daily 4) Continue current plan of care Expected Outcomes/Goals: Pt will meet >75% estimated needs Fu 5-7 days Food and Nutrition Intake (Sev: <50% est energy req 5days Interpretation of weight loss: >5% in 1 month Protein Calorie Malnutrition: Severe Is there a minimum of two crit: Yes BEATA PALOMINO RESIDENT May 24, 2024 14:56
[2024-05-24 17:00] VITALS: BP 132/66; PULSE 104; RESP 18; TEMP 98; O2SAT 98
[2024-05-24 21:11] VITALS: BP 132/70; PULSE 106; RESP 18; TEMP 97.9; O2SAT 98
[2024-05-25 00:43] VITALS: BP 116/63; PULSE 106; RESP 20; TEMP 97.6; O2SAT 97
[2024-05-25 05:00] VITALS: BP 134/68; PULSE 99; RESP 20; TEMP 97.7; O2SAT 99
--- NOTE | 2024-05-25 08:21 | DVHPNRES ---
Progress Note Date Seen: May 25, 2024 Resident Creating Document: ANALY ESTRADA RESIDENT Has the PT tested + for MRSA If YES, has PT been informed?: Yes Medical Necessity Reason Pt with a Central, PICC or Fol: No Subjective Review of Systems 73-year-old male with a past medical history of hypertension, hyperlipidemia, inclusion body myositis, and a recent diagnosis of Clostridioides difficile infection, presenting with generalized weakness. He resides in a longterm and has been noted to be lethargic, not eating well, and experiencing fatigue with minimal exertion. Patient also stated few episodes of diarrhea He was on mycophenolate (for myositis) and colchicine, both of which have now been discontinued due to neutropenia. His clinical course has been complicated by worsening weakness, an elevated CRP, and the initiation of broad-spectrum antibiotics (ceftriaxone, metronidazole, vancomycin) due to concern for possible infection. Objective vital signs Vital Sign Date Time Temp Pulse Resp B/P (MAP) Pulse Ox O2 Delivery O2 Flow Rate FiO2 05/25/24 05:00 97.7 99 20 134/68 (90) 99 97.7 05/24/24 19:48 Nasal Cannula* 1 24 Total Intake and Output 05/24/24 05/24/24 05/25/24 15:00 23:00 07:00 Intake Total 1300 ml 400 ml Output Total 550 ml 850 ml Balance 750 ml -450 ml medications Current Medications Medications Dose Ordered Sig/Mia Route Start Time Stop Time Status Last Admin Dose Admin Sodium Chloride 1,000 ml @ 60 mls/hr [id number] IV 05/16/24 09:00 05/22/24 15:21 60 MLS/HR Acetaminophen/ Hydrocodone Bitart 1 tab Q4HP PRN PO 05/16/24 09:00 05/25/24 02:42 1 TAB Ondansetron HCl 4 mg Q4HP PRN IV 05/16/24 09:00 05/16/24 16:05 4 MG Acetaminophen 650 mg Q6HP PRN PO 05/16/24 09:00 Losartan Potassium 50 mg BIDP PRN PO 05/16/24 15:00 Pantoprazole Sodium 40 mg DAILY PO 05/17/24 10:00 05/24/24 10:55 40 MG Patient Own Medication 1 tab BID PRN PO 05/16/24 16:45 Hold Saccharomyces Boulardii 250 mg DAILY PO 05/18/24 10:00 05/24/24 10:54 250 MG Cholestyramine Resin 4 gm DAILY@11 GT 05/18/24 11:00 05/24/24 12:03 4 GM Loperamide HCl 2 mg PRN PRN PO 05/17/24 15:15 Melatonin 5 mg HS PO 05/19/24 22:00 05/24/24 20:56 5 MG Potassium Chloride 40 meq DAILY PO 05/24/24 10:00 05/24/24 10:55 40 MEQ Examination General: Alert, oriented x3, Respiratory: clear lungs Cardiovascular: No murmurs, regular rhythm GI: Non-distended, no tenderness Neurologic: No focal deficits Skin multiple skin excoriations laboratory and microbiology Laboratory Tests 05/24/24 04:59 Test 05/24/24 04:59 Range/Units Serum Glucose 77 74-106 mg/dL Microbiology Date/Time Source Procedure Growth Status 05/18/24 05:50 Voided Urine Urine Culture - Final Complete 05/18/24 05:39 Nose MRSA Screen - Final Complete 05/17/24 08:05 Blood Blood Culture - Final NO GROWTH AFTER 5 DAYS OF INCUBATION. Complete 05/16/24 17:52 Stool Clostridium difficile Toxin Assay - Final Complete Problem List/Assessment/Plan Problem List/Assessment/Plan #Possible drug induced neutropenia resolved #Possible drug induced anemia #Sepsis? #C difficile infection recently #VALERIANO possible ATN improving #Inclusion bodies myositis #Hypertension #Hypokalemia #Thrombocytopenia Diet: mechanical soft IV fluids: 1 lt given today keep 60 cc/h DC AB: doxycycline + cefepime + metronidazole IV DC Neupogen WBC are trending high STOP mycophenolate and colchicine due to neutropenia Protonix IV CK normal , ESR high , haptoglobin normal , reticulocytes low, stools studies pending , urine studies: Fena elevated possible ATN , peripheral smear, blood culture neg , Clostridium difficile toxin neg wound culture: Moderate growth: Gram Positive Rods resembling Diphtheroids GI on board Hematology consult: bone marrow biopsy today, ok to dc, fu with Dr Vazquez as outpatient PT evaluation for home PT and wound care K PO Temazepam PO PT [facility] today Case discussed with Dr Shore Plan discussed with: Patient, Other (rn) My Orders My Orders Orders - ANALY ESTRADA RESIDENT Procedure Category Date Status Time Discharge DISCHARGE 05/24/24 Transmitted 10:00 * Retarder Operator CONS 05/24/24 Transmitted Consult Dietary Evaluation Review Recommendations by RD: Increase Calorie Intake, Protein Supplementation Comments: 1) Cardiac Msoft diet 2) Ensure Enlive 8fl oz BID 3) VitC 500mg BID, zinc sulfate 220mg 1 tab daily x 10 days, MVI 1 tab daily 4) Continue current plan of care Expected Outcomes/Goals: Pt will meet >75% estimated needs Fu 5-7 days Food and Nutrition Intake (Sev: <50% est energy req 5days Interpretation of weight loss: >5% in 1 month Protein Calorie Malnutrition: Severe Is there a minimum of two crit: Yes ANALY ESTRADA RESIDENT May 25, 2024 08:21
[2024-05-25 08:52] VITALS: BP 126/79; PULSE 61; RESP 16; TEMP 98.2; O2SAT 95
[2024-05-25 13:00] VITALS: BP 121/64; PULSE 96; RESP 16; TEMP 97.4; O2SAT 98
== END 2024-05-25 15:43 | disposition home health service (06) | DRG 871 ==
LOC: EDBD 21:32 → EDUNIT# 21:32 → ER 21:32 → OVERFLOW 05-16 08:50 → EAST 05-17 22:45
PROVIDERS: ADMIT Internal Medicine; ATTEND Internal Medicine
PROC: 07DR3ZX Extraction of Iliac Bone Marrow, Percutaneous Approach, Diagnostic (ICD-10-PCS; principal; 2024-05-23)
PROC: 079T3ZX Drainage of Bone Marrow, Percutaneous Approach, Diagnostic (ICD-10-PCS; 2024-05-23)
DX: A41.9 Sepsis, unspecified organism (principal); D61.811 Other drug-induced pancytopenia; N17.0 Acute kidney failure with tubular necrosis; I10 Essential (primary) hypertension; E86.0 Dehydration; R63.4 Abnormal weight loss; E87.6 Hypokalemia; E78.5 Hyperlipidemia, unspecified; T45.1X5A Adverse effect of antineoplastic and immunosuppressive drugs, initial encounter; M60.88 Other myositis, other site; D70.2 Other drug-induced agranulocytosis; T50.995A Adverse effect of other drugs, medicaments and biological substances, initial encounter; Z79.899 Other long term (current) drug therapy; Z80.8 Family history of malignant neoplasm of other organs or systems; Z68.20 Body mass index [BMI] 20.0-20.9, adult; Y92.89 Other specified places as the place of occurrence of the external cause
CPT/HCPCS: 10005; 36415; 71045; 72192; 74177; 77012; 80053; 81001; 82550; 82570; 82607; 83010; 83605; 83615; 83690; 83735; 83880; 84156; 84300; 85007; 85025; 85027; 85045; 85610; 85652; 85730; 86038; 86141; 86703; 86704; 86706; 86708; 86803; 87040; 87081; 87086; 87205; 87340; 87493; 92610; 93005; 96360; 97110; 97163; 97530; G0378; J1447; J2003; J2250; J2405; J3490; J7517